=== PATIENT | female | born 1980 | race Caucasian/White ===

== ENCOUNTER → 2016-09-16 | Outpatient (CLI) | payer OTHER ==
[~2016-09-16] MED LIST: ASPI81TA28 PO; BUSP15TA70 PO; CALC625T13 PO; CETI10TA84 PO; ESCI1TAB10 PO; FOLI1TAB7 PO; OMEP20TA14 PO; VNTHFA/IN INH
[2016-09-19 00:16] LABS: CRYPTOSPORIDIUM AG TC 37213 NOT DETECTED (NOT DETECTED); O&P GIARDIA AG NOT DETECTED (NOT DETECTED)
== END | disposition home or self-care (01) ==
LOC: C.LABMFLN 15:00
PROVIDERS: ATTEND Family Medicine
DX: R19.7 Diarrhea, unspecified (principal)

== ENCOUNTER → 2016-09-28 | Outpatient (CLI) | payer OTHER ==
[2016-09-28 18:06] LABS: HEMATOCRIT 40.4 % (37-47); MEAN CELL VOLUME 84.5 fL (80-100); MEAN CORPUSCULAR HEMOGLOBIN 27.4 pg (25-34); MEAN CORPUSCULAR HGB CONC 32.4 g/dl (32-36); MEAN PLATELET VOLUME 9.7 fL (7.4-10.4); PLATELET COUNT 415 K/uL (130-400); RED BLOOD COUNT 4.78 M/uL (4.2-5.4); WHITE BLOOD COUNT 8.95 K/uL (4.8-10.8)
[2016-09-28 18:17] LABS: ALT/SGPT 20 U/L (12-78); BLOOD UREA NITROGEN 10 mg/dl (7-18); BUN/CREATININE RATIO 14.5 (10-20); CALCIUM 8.7 mg/dl (8.5-10.1); CARBON DIOXIDE 28 mmol/L (21-32); CHLORIDE 103 mmol/L (98-107); CREATININE 0.69 mg/dl (0.60-1.20); GLUCOSE 78 mg/dl (70-99); POTASSIUM 3.7 mmol/L (3.5-5.1); SODIUM 139 mmol/L (136-145)
[2016-09-28 18:28] LABS: ALB/GLOB RATIO 0.8 (0.9-2); ALKALINE PHOSPHATASE 91 U/L (45-117); AST/SGOT 15 U/L (15-37)
== END | disposition home or self-care (01) ==
LOC: C.LABMFLN 11:16
PROVIDERS: ATTEND Internal Medicine Gastroenterology
DX: R19.7 Diarrhea, unspecified (principal)

== ENCOUNTER → 2016-10-16 | Day surgery (SDC) | payer OTHER ==
[2016-09-28 11:04] VITALS: Ht 175.3 cm; Wt 136.8 kg
[~2016-10-16] VITALS: Ht 175.3 cm; Wt 136.8 kg
[~2016-10-16] MED LIST changes: +LIDOCAINE HCL 2% 2 ML VIAL (20MG/ML) ONE; +MIDAZOLAM HCL 1 MG/ML 2ML VIAL ONE; +PROPOFOL IV EMULSION 10 MG/ML 20 ML VIAL IV ONE
--- NOTE | 2016-10-16 13:10 | Endo History and Physical ---
History & Physical Date of Service: Oct 16, 2016. Chief Complaint: diarrrhea Referring Physician: Roya MCNEILL History of Present Illness For colonoscopy Past Surgical History Hx Cardiac Surgery: No Hx Internal Defibrillator: No Hx Pacemaker: No Hx Abdominal Surgery: Yes (D&E) Hx of Implantable Prosthesis: No Hx Post-Op Nausea and Vomiting: No Hx Cancer Surgery: No Hx Thoracic Surgery: No Hx Orthopedic: No Hx Urinary Tract Surgery: No Family History Colon CA, Polyp Social History Smoking Status: Never Smoker Hx Substance Use: No Hx Alcohol Use: No Allergies Coded Allergies: Cefaclor (Verified Allergy, Unknown, hives, 10/16/16) Clarithromycin (Verified Allergy, Unknown, hives, 10/16/16) Erythromycin (Verified Allergy, Unknown, hives, 10/16/16) Penicillins (Verified Allergy, Unknown, hives, 10/16/16) Sulfamethoxazole w/Trimethoprim (Verified Allergy, Unknown, hives, 10/16/16 ) Current Medications Reported Home Medications Medications Dose Route/Sig Max Daily Dose Days Date Category Fiber Tabs (Calcium Polycarbophil) 625 Mg Tab 1 Tab PO QAM 09/28/16 Reported Ventolin Hfa (Albuterol) 200 Puffs/26690 Mcg Aers 2-4 Puffs INH Q6H PRN 08/10/16 Reported Buspar (Buspirone Hcl) 15 Mg Tab 7.5 Mg PO BID 08/10/16 Reported Lexapro (Escitalopram Oxalate) 20 Mg Tab 20 Mg PO QAM 07/17/16 Reported Zyrtec (Cetirizine HCl) 10 Mg Tab 10 Mg PO QAM 07/17/16 Reported Prilosec Otc (Omeprazole Magnesium) 20 Mg Tab 20 Mg PO QAM 07/17/16 Reported Folvite (Folic Acid) Unknown Strength Tab 800 Mcg PO QAM 07/17/16 Reported Aspirin Ec (Aspirin) 81 Mg Tab 81 Mg PO QAM 07/17/16 Reported Vital Signs Weight (Kilograms): 136.82 Height (Feet): 5 Height (Inches): 9 Date Time Temp Pulse Resp B/P Pulse Ox O2 Delivery O2 Flow Rate FiO2 10/16/16 12:27 36.6 93 20 150/85 95 Room Air Physical Exam General Appearance: + obese Respiratory/Chest: Respiratory effort: no dyspnea Cardiovascular: Heart Auscultation: RRR Abdomen: Inspection & Palpation: soft Assessment and Plan Diarrhea for colonoscopy
--- NOTE | 2016-10-16 13:48 | Endo History and Physical ---
History & Physical Date of Service: Oct 16, 2016. Chief Complaint: diarrrhea Referring Physician: Roya MCNEILL History of Present Illness For colonoscopy Past Surgical History Hx Cardiac Surgery: No Hx Internal Defibrillator: No Hx Pacemaker: No Hx Abdominal Surgery: Yes (D&E) Hx of Implantable Prosthesis: No Hx Post-Op Nausea and Vomiting: No Hx Cancer Surgery: No Hx Thoracic Surgery: No Hx Orthopedic: No Hx Urinary Tract Surgery: No Family History Colon CA, Polyp Social History Smoking Status: Never Smoker Hx Substance Use: No Hx Alcohol Use: No Allergies Coded Allergies: Cefaclor (Verified Allergy, Unknown, hives, 10/16/16) Clarithromycin (Verified Allergy, Unknown, hives, 10/16/16) Erythromycin (Verified Allergy, Unknown, hives, 10/16/16) Penicillins (Verified Allergy, Unknown, hives, 10/16/16) Sulfamethoxazole w/Trimethoprim (Verified Allergy, Unknown, hives, 10/16/16 ) Current Medications Reported Home Medications Medications Dose Route/Sig Max Daily Dose Days Date Category Fiber Tabs (Calcium Polycarbophil) 625 Mg Tab 1 Tab PO QAM 09/28/16 Reported Ventolin Hfa (Albuterol) 200 Puffs/03892 Mcg Aers 2-4 Puffs INH Q6H PRN 08/10/16 Reported Buspar (Buspirone Hcl) 15 Mg Tab 7.5 Mg PO BID 08/10/16 Reported Lexapro (Escitalopram Oxalate) 20 Mg Tab 20 Mg PO QAM 07/17/16 Reported Zyrtec (Cetirizine HCl) 10 Mg Tab 10 Mg PO QAM 07/17/16 Reported Prilosec Otc (Omeprazole Magnesium) 20 Mg Tab 20 Mg PO QAM 07/17/16 Reported Folvite (Folic Acid) Unknown Strength Tab 800 Mcg PO QAM 07/17/16 Reported Aspirin Ec (Aspirin) 81 Mg Tab 81 Mg PO QAM 07/17/16 Reported Vital Signs Weight (Kilograms): 136.82 Height (Feet): 5 Height (Inches): 9 Date Time Temp Pulse Resp B/P Pulse Ox O2 Delivery O2 Flow Rate FiO2 10/16/16 12:27 36.6 93 20 150/85 95 Room Air Physical Exam Respiratory/Chest: Respiratory effort: no dyspnea
--- NOTE | 2016-10-16 13:49 | Discharge Instructions ---
Endoscopy Patient Instructions Date / Procedure(s) Performed Oct 16, 2016. Colonoscopy Allergy Information Coded Allergies: Cefaclor (Verified Allergy, Unknown, hives, 10/16/16) Clarithromycin (Verified Allergy, Unknown, hives, 10/16/16) Erythromycin (Verified Allergy, Unknown, hives, 10/16/16) Penicillins (Verified Allergy, Unknown, hives, 10/16/16) Sulfamethoxazole w/Trimethoprim (Verified Allergy, Unknown, hives, 10/16/16 ) Discharge Date / Findings Oct 16, 2016. Normal colon Medication Instructions Restart Stopped Medication(s): resume meds Reported Home Medications Medications Dose Route/Sig Max Daily Dose Days Date Category Fiber Tabs (Calcium Polycarbophil) 625 Mg Tab 1 Tab PO QAM 09/28/16 Reported Ventolin Hfa (Albuterol) 200 Puffs/31482 Mcg Aers 2-4 Puffs INH Q6H PRN 08/10/16 Reported Buspar (Buspirone Hcl) 15 Mg Tab 7.5 Mg PO BID 08/10/16 Reported Lexapro (Escitalopram Oxalate) 20 Mg Tab 20 Mg PO QAM 07/17/16 Reported Zyrtec (Cetirizine HCl) 10 Mg Tab 10 Mg PO QAM 07/17/16 Reported Prilosec Otc (Omeprazole Magnesium) 20 Mg Tab 20 Mg PO QAM 07/17/16 Reported Folvite (Folic Acid) Unknown Strength Tab 800 Mcg PO QAM 07/17/16 Reported Aspirin Ec (Aspirin) 81 Mg Tab 81 Mg PO QAM 07/17/16 Reported Provider Instructions Activity Restrictions - No exercising or heavy lifting for 24 hours. - Do not drink alcohol the day of the procedure. - Do not drive a car or operate machinery until the day after the procedure. - Do not make any important decisions or sign important papers in 24 hours after the procedure. Following Day: - Return to full activity which may include returning to work/school. Diet Start your diet with liquids and light foods (jello, soup, juice, toast). Then eat your usual diet if not nauseated. Treatment For Common After Affects For mild abdominal pain, bloating, or excessive gas: - Rest - Eat lightly - Lie on right side Follow-Up Information Follow-up with Roya MCNEILL as scheduled Anesthesia Information What You Should Know You have had a procedure that required some medicine to reduce anxiety and discomfort. This treatment is called moderate sedation. After receiving the treatment, you may be sleepy, but you will be able to breathe on your own. The effects of the treatment may last for several hours. Follow these instructions along with Activity/Diet recommendations noted above: * Do NOT do anything where dizziness or clumsiness would be dangerous. * Rest quietly at home today, then you can be up and about tomorrow. * Have a responsible person stay with you the rest of today. * You may have had an I.V. today. If so, you may take the dressing off later today. Recommendations Call your doctor if: * Trouble breathing * Continuous vomiting for more than 24 hours * Temperature above 101 degrees * Severe abdominal pain or bloating * Pain not relieved by pain medicine ordered * There is increased drainage or redness from any incision * A large amount of rectal bleeding greater than 2-3 tablespoons. (If you had a polyp/s removed or have hemorrhoids, a small amount of blood - from the rectum is to be expected.) * You have any unanswered questions or concerns. IN THE EVENT OF A SERIOUS EMERGENCY, GO TO THE NEAREST EMERGENCY ROOM Your discharge instructions were prepared by provider Connor Harris. Patient Instructions Signature Page Teresita Connor Patient (or Guardian) Signature/Date: I have read and understand the instructions given to me by my caregivers. Caregiver/RN/Doctor Signature/Date: The above-named patient and/or guardian has received patient instructions on this date. + Original Patient Signature Page (only) stays with chart. Please make copy for patient.
--- NOTE | 2016-10-16 13:54 | GI REPORT ---
Procedure Date: 10/16/2016 1:16 PM Procedure: Colonoscopy Indications: Clinically significant diarrhea of unexplained origin Medicines: Midazolam 2 mg IV, Propofol total dose 300 mg IV, Lidocaine 40 mg IV Complications: No immediate complications. Estimated Blood Loss: Estimated blood loss: none. Procedure: Pre-Anesthesia Assessment: - Prior to the procedure, a History and Physical was performed, and patient medications, allergies and sensitivities were reviewed. The patient's tolerance of previous anesthesia was reviewed. - The risks and benefits of the procedure and the sedation options and risks were discussed with the patient. All questions were answered and informed consent was obtained. After I obtained informed consent, the scope was passed under direct vision. Throughout the procedure, the patient's blood pressure, pulse, and oxygen saturations were monitored continuously. The scope was introduced through the anus and advanced to the cecum, identified by appendiceal orifice and ileocecal valve. The colonoscopy was performed without difficulty. The patient tolerated the procedure well. The quality of the bowel preparation was good. Findings: The entire examined colon appeared normal. Impression: - The entire examined colon is normal. - No specimens collected. Recommendation: - Discharge patient to home (ambulatory). - Continue present medications. - Return to primary care physician PRN. Connor Harris M.D. Connor Harris MD 10/16/2016 1:54:40 PM This report has been signed electronically. Note Initiated On: 10/16/2016 1:16 PM I attest to the content of the Intraoperative Record and orders documented therein, exceptions below
--- NOTE | 2016-10-16 14:13 | Anesthesiology Progress Note ---
Anesthesia Post Op Note Date & Time Oct 16, 2016 at 14:14 Vital Signs Pain Intensity: 0 Vital Signs Past 12 Hours Date Time Temp Pulse Resp B/P Pulse Ox O2 Delivery O2 Flow Rate FiO2 10/16/16 14:06 79 20 118/76 99 Room Air 10/16/16 13:51 66 20 119/61 99 Room Air 10/16/16 12:27 36.6 93 20 150/85 95 Room Air Notes Mental Status: alert / awake / arousable, participated in evaluation Pt Amnestic to Procedure: Yes Nausea / Vomiting: adequately controlled Pain: adequately controlled Airway Patency, RR, SpO2: stable & adequate BP & HR: stable & adequate Hydration State: stable & adequate Anesthetic Complications: no major complications apparent
[2016-10-16 14:26] VITALS: BP 129/76; PULSE 79; O2SAT 99
== END | disposition home or self-care (01) ==
LOC: C.GI 12:03
PROVIDERS: ATTEND Internal Medicine Gastroenterology
DX: R19.7 Diarrhea, unspecified (principal); Z80.0 Family history of malignant neoplasm of digestive organs; Z83.71 Family history of colonic polyps

== ENCOUNTER → 2016-10-19 | Outpatient (CLI) | payer OTHER ==
[~2016-10-19] MED LIST changes: -LIDOCAINE HCL 2% 2 ML VIAL (20MG/ML) ONE; -MIDAZOLAM HCL 1 MG/ML 2ML VIAL ONE; -PROPOFOL IV EMULSION 10 MG/ML 20 ML VIAL IV ONE
--- NOTE | 2016-10-19 13:27 | DIAGNOSTIC IMAGING REPORT ---
CHEST 2 VIEWS ROUTINE CLINICAL HISTORY: R68.89 Flu-like [id number] COMPARISON STUDY: 07/17/2016 FINDINGS: The cardiac and mediastinal contours are normal. There is no evidence of focal pulmonary consolidation. There is no evidence of failure. No pleural effusions are visualized.[ IMPRESSION: No active disease in the chest. Electronically signed by: Roshan Liu M.D. 10/19/2016 1:26 PM Dictated Date/Time: 10/19/2016 1:26 PM
== END | disposition home or self-care (01) ==
LOC: C.RAD 13:02
PROVIDERS: ATTEND Family Medicine
DX: R68.89 Other general symptoms and signs (principal)

== ENCOUNTER → 2016-10-19 | Outpatient (CLI) | payer OTHER ==
[2016-10-19 14:56] LABS: INFLUENZA A PCR Neg for Influ A (NEG); INFLUENZA B PCR Neg for Influ B (NEG)
== END | disposition home or self-care (01) ==
LOC: C.LABMFLN 10:18
PROVIDERS: ATTEND Family Medicine
DX: R50.9 Fever, unspecified (principal)

== ENCOUNTER → 2017-03-04 | Outpatient (CLI) | payer OTHER ==
--- NOTE | 2017-03-04 15:58 | DIAGNOSTIC IMAGING REPORT ---
LEFT KNEE 3 VIEWS HISTORY:36 [id number] Left knee painM25.469 Effusion of [id number] . Chronic left knee pain without trauma. COMPARISON: None available. TECHNIQUE: Frontal, lateral and sunrise views of the left knee. FINDINGS: There is no acute fracture or dislocation. Moderate tricompartmental osteoarthritis is noted, most pronounced in the medial and patellofemoral compartments. Apparent 2 mm intra-articular loose body is present within the lateral patellofemoral joint. There is a small joint effusion. Negative for radiopaque foreign body. IMPRESSION: 1. No acute fracture or dislocation. 2. Moderate tricompartmental osteoarthritis, most pronounced within the medial and patellofemoral compartments. 2 mm loose body is present within the lateral patellofemoral joint. 3. Small joint effusion. The above report was generated using voice recognition software. It may contain grammatical, syntax or spelling errors. Electronically signed by: Tico Lynn 03/04/2017 3:57 PM Dictated Date/Time: 03/04/2017 3:55 PM
== END | disposition home or self-care (01) ==
LOC: C.RAD 15:25
PROVIDERS: ATTEND Physician Assistant
DX: M25.462 Effusion, left knee (principal); M25.562 Pain in left knee; M17.9 Osteoarthritis of knee, unspecified

== ENCOUNTER → 2017-08-16 | Outpatient (CLI) | payer OTHER ==
[~2017-08-16] MED LIST changes: -FOLI1TAB7 PO; +FOLI1TAB8 PO
--- NOTE | 2017-08-16 12:30 | DIAGNOSTIC IMAGING REPORT ---
CHEST 2 VIEWS ROUTINE HISTORY: 37 years-old Female R05 Cough with fever acute cough and congestion for 3 days. COMPARISON: Chest radiograph 10/19/2016 TECHNIQUE: PA and lateral views of the chest FINDINGS: Cardiomediastinal and hilar silhouettes are within normal limits. There is no pneumothorax, pleural effusion, focal airspace consolidation or overt pulmonary edema. Bones of the chest are grossly intact. IMPRESSION: No acute cardiopulmonary process. The above report was generated using voice recognition software. It may contain grammatical, syntax or spelling errors. Electronically signed by: Tico Lynn M.D. 08/16/2017 12:29 PM Dictated Date/Time: 08/16/2017 12:28 PM
== END | disposition home or self-care (01) ==
LOC: C.RAD 12:09
PROVIDERS: ATTEND Physician Assistant
DX: R05 Cough (principal); R50.9 Fever, unspecified

== ENCOUNTER → 2017-09-14 | Outpatient (CLI) | payer OTHER | END | disposition home or self-care (01) | LOC: C.LABMFLN 10:14 | PROVIDERS: ATTEND Physician Assistant | DX: R05 Cough (principal) ==

== ENCOUNTER → 2017-11-24 | Outpatient (CLI) | payer OTHER | END | disposition home or self-care (01) | LOC: C.LABMFLN 14:02 | PROVIDERS: ATTEND Physician Assistant | DX: J02.9 Acute pharyngitis, unspecified (principal) ==

== ENCOUNTER → 2018-04-20 | Outpatient (CLI) | payer OTHER | END | disposition home or self-care (01) | LOC: C.LABMFLN 07:09 | PROVIDERS: ATTEND Physician Assistant | DX: Z00.00 Encounter for general adult medical examination without abnormal findings (principal) ==

== ENCOUNTER 2024-05-08 17:41 | Inpatient (IN) ==
[2024-05-08 18:23] LABS: Basophils # (auto) 0.07 K/uL (0.00-0.20); Basophils % (auto) 0.6 %; Eosinophils # (auto) 0.11 K/uL (0.00-0.50); Eosinophils % (auto) 0.9 %; Hematocrit (blood only) 43.4 % (37.0-47.0); Immature Granulocytes # (auto) 0.04 K/uL (0.01-0.20); Immature Granulocytes % (auto) 0.3 %; Lymphocytes # (auto) 2.65 K/uL (1.20-3.40); Lymphocytes % (auto) 21.3 %; Mean Corpuscular Hemoglobin 28.5 pg (25.0-34.0); Mean Corpuscular Hgb Conc 32.3 g/dL (32.0-36.0); Mean Corpuscular Volume 88.4 fL (80.0-100.0); Mean Platelet Volume 9.5 fL (9.4-12.4); Monocytes # (auto) 0.75 K/uL (0.11-0.59); Neutrophils # (auto) 8.84 K/uL (1.40-6.50); Neutrophils % (auto) 70.9 %; Platelet Count 346 K/uL (130-400); RDW Coefficient of Variation 12.6 % (11.5-14.5); RDW Standard Deviation 40.9 fL (36.4-46.3); Red Blood Count 4.91 M/uL (4.20-5.40); White Blood Count 12.46 K/ul (4.8-10.8)
--- NOTE | 2024-05-08 18:25 | Emergency Department Note ---
Impression & Plan Bilateral pulmonary embolism, Closed dislocation of patella ED Provider Note NAME: ROEL VELEZ AGE: 43 SEX: F : 1980 ARRIVES VIA: Walk-In INFORMANT: Patient, ED PROVIDER(S): Adama Dillon MD CHIEF COMPLAINT: Chest pain MEDICAL DECISION MAKING: Patient presents due to concern for chest pain. IV was established and blood work was obtained along with an EKG troponin and chest x-ray. Patient's EKG did show Q waves and T wave version inferiorly. CT angiography of the chest was ordered. Prior to going to CAT scan the patient had acute onset of right knee pain does have a prior history of a patellar dislocation. X-ray was obtained which did show a patellar dislocation. The patient did receive IV morphine 8 mg. Patient subsequently had improvement in her pain. The patient was able to be reduced with the patient still had a lot of mobility of the patella. I did apply some Kinesiotape as well as a knee immobilizer to help secure the patella. Blood work showed white count of 12 with normal H&H and platelet count kidney function was unremarkable. Troponin not elevated COVID flu and RSV negative. The patient's D-dimer was 4200. Patient did get a CTA of the chest. Reviewed the CT did show concern for bilateral PEs. Heparin was ordered. Patient did have her knee x-ray completed which shows improved alignment but may be still subluxed. Given the patient's bilateral PEs I did speak the on-call hospitalist service after informing the patient the patient's of the findings and the patient was admitted by Dr. Solis. Critical Care: I have personally spent 50 minutes of critical care time in direct management of this patient. This includes bedside care, interpretation of diagnostic studies, and testing, discussion with consultants, patient, and family members, and other require inpatient management activities. This 50 minutes is in excess of all separately billable procedures. Procedures: Right patellar dislocation reduction performed by Dr. Dillon Indication: Right patellar dislocation Verbal consent obtained. Risks and benefits were explained with the usual customary discussion. A time out was taken. Neurovascular examination before the procedure revealed. The right knee was extended and this was applied medially to the patella which did result in improved alignment of the patella. The patient still did have associated laxity of the patella. Knee immobilizer was applied. Neurovascular examination after the procedure revealed normal. The patient had significant pain relief and tolerated the procedure well. Discussion w/ other healthcare providers: Dr. Solis inpatient medicine service Prior /Outside records reviewed: None Differential diagnosis: Cardiac ischemia, aortic dissection, pulmonary embolism, pneumothorax, pneumonia, pericarditis, myocarditis, GERD, cholecystitis, pancreatitis, musculoskeletal, as well as other pathologies were considered. Diagnostics, as interpreted by me: ECG:Normal sinus rhythm, rate of 92, normal intervals, normal axis no ST elevations, T wave inversion in lead III. T wave version may be more pronounced Cardiac monitoring: An order was placed for continuous cardiac monitoring. The monitor shows a rate of 87 with sinus rhythm. Patient was placed on pulse oximetry Medical decision rules: None Imaging studies: I informally interpreted the patient's CT angiography of the chest shows concern for bilateral PEs with formal report to follow. I informally interpreted the patient's knee x-ray which does show lateral subluxation of the right patella with formal report to follow. HPI: Patient presents due to concern for chest pain. The patient states that it began last night and is right sided worse with breathing. Patient states she currently has a chest pain at present. Nonradiating. Patient denies any falls or trauma no cough or fever. Patient did travel at the end of February early March. Patient did suffer a fall and a patellar dislocation in February and has been wearing a knee brace on her right leg. She does believe that she has noticed some right leg swelling. Patient denies any calf pain. No shortness of breath. Patient has any prior history of DVT or PE. Patient did not take anything for it at home. Patient reports that she is undergoing physical therapy for a prior patellar dislocation and is scheduled for surgery with Dr. Arellano for possible osteotomy if this does not improve in May. PAST MEDICAL HISTORY: See Below PAST SURGICAL HISTORY: See Below SOCIAL HISTORY: See Below HOME MEDICATIONS: See Below ALLERGIES: See Below VITALS: See Below PHYSICAL EXAMINATION: GENERAL: NAD, non-toxic. Wearing glasses. EYE EXAM: Normal conjunctiva. PERRL, no anisocoria and EOM's grossly intact w/o pain. OROPHARYNX: Moist mucus membranes, grossly normal dentition. NECK: Trachea midline, no stridor. LUNGS: Clear to auscultation. Normal chest wall mechanics. HEART: NSR, no MRG. ABDOMEN: Abdomen soft, non-tender, no masses, no rebound or guarding. BACK: No CVA TTP. SKIN: No rashes and no bruising. UPPER EXTREMITIES: Upper extremities are grossly normal. LOWER EXTREMITIES: Grossly normal, no edema. No obvious asymmetry, negative Homans' sign bilaterally, normal sensation. NEURO EXAM: A&O x3, cranial nerves II-XII grossly intact, normal speech, moves all 4 extremities. Past Med/Surg History Problem List (Updated 05/08/24 @ 23:53 by Adama Dillon MD) Closed dislocation of patella (Acute) Bilateral pulmonary embolism (Acute) Dislocation of right patella Change in bowel habits Positive RACHEL (antinuclear antibody) Thyroid nodule Cervicalgia Thyromegaly History of hyperlipidemia Abnormal mammogram Allergic rhinitis (Acute) Bleeding disorder (Acute) Migraine headache (Acute) HLD (hyperlipidemia) Allergic rhinitis Chronic GERD MTHFR gene mutation Asthma well controlled -- last used rescue inhaler Fall 2022. Benign essential hypertension Anxiety Medical History History of COVID-19 05/2021: severe flu symptoms. no hospitalization. Obesity Surgical History History of esophagogastroduodenoscopy (EGD) History of dilatation and curettage D&E History of colonoscopy History of myringotomy BMT (multiple times) Family History Father Anxiety Depression Lung disease Hypertension Mother Hypertension Grandfather Lung disease Cancer Other No family history of adverse response to anesthesia Denies family history of Ovarian cancer Prostate cancer Myocardial infarction Breast cancer Colorectal cancer Social History Smoking Status: Current every day smoker Tobacco Type: E-cigarettes / Vaping Cigarettes Per Day: vapes daily; Second Hand Exposure: No; Do You Dip or Chew Tobacco: No; Hx Alcohol Use: Yes (little) Hx Substance Use: No Preferred Language: Hebrew Communication Ability: Effective Visual Impairment: No Limitations Hearing Ability: Normal 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 Beliefs That Will Affect Care: None marital status: Single Current Living Situation: Family current occupational status: employed How many Children do You have: 3 Feels Safe at Home: Yes Childhood Exposure to Second-Hand Smoke: Yes Diet: regular caffeine: Yes during the past year weight has: remained stable Dental Care, Regularly: Yes Physical Activity Frequency: 1-2 Times per Week Seatbelt Use: always Sunscreen Use: Yes (sometimes) Assistive Devices: Contacts and Glasses Allergies Allergies Allergy/AdvReac Type Severity Reaction Status Date / Time Bactrim Allergy Unknown hives Verified 10/16/16 12:17 cefaclor Allergy Unknown hives Verified 11/16/23 13:04 clarithromycin Allergy Unknown hives Verified 11/16/23 13:04 erythromycin base Allergy Unknown hives Verified 11/16/23 13:04 Penicillins Allergy Unknown hives Verified 11/16/23 13:04 sulfamethoxazole Allergy Unknown hives Verified 11/16/23 13:04 trimethoprim Allergy Unknown hives Verified 11/16/23 13:04 Home Meds Home Medications Medication Instructions Recorded Confirmed aspirin 81 mg tablet,delayed 81 mg PO QAM 09/11/21 11/16/23 release (Candace Low Dose Aspirin) fluticasone propionate 50 2 sprays intranasal DAILY PRN 09/11/21 11/16/23 mcg/actuation nasal Allergy Symptoms spray,suspension multivitamin (Multiple Vitamins 1 tab PO QAM 09/11/21 11/16/23 tablet) magnesium 30 mg tablet 30 mg PO 3XWK 09/17/21 11/16/23 levonorgestrel 21 mcg/24 hr (up to 1 ea intrauterine ONCE 11/03/23 11/16/23 8 years) 52 mg intrauterine device (Mirena) omega 6-szk-naq-fish oil 1,000 mg 2 cap PO QAM 11/03/23 11/16/23 (120 mg-180 mg) capsule (Fish Oil) omeprazole magnesium 20 mg 20 mg PO QAM 11/03/23 11/16/23 tablet,delayed release Previous Rx's Medication Instructions Recorded eletriptan 20 mg tablet 20 mg PO ONCE PRN migraine 04/23/22 headache #8 tabs albuterol sulfate 90 mcg/actuation See Rx Instructions .Route 10/15/22 aerosol inhaler .COMPLEX #18 ea albuterol sulfate 2.5 mg/3 mL 2.5 mg (3 mL) inhalation Q4H PRN 10/23/22 (0.083 %) solution for nebulization shortness of breath or wheezing #180 mL nebulizer accessories #1 ea 10/23/22 hydroxyzine HCl 25 mg tablet 25 mg PO QID PRN anxiety #30 tabs 06/15/23 losartan 25 mg tablet 25 mg PO BID #180 tabs 07/19/23 montelukast 10 mg tablet 10 mg PO QPM #90 tabs 09/27/23 buspirone 10 mg tablet 10 mg PO BID #180 tabs 01/10/24 fluoxetine 40 mg capsule 40 mg PO QAM #90 caps 01/13/24 Results & Data (ED) Vital Signs Vital Signs - 24 hr 05/08/24 17:45 05/08/24 18:14 05/08/24 18:14 Temperature 36.5 C Temperature Source Temporal Artery Scan Pulse Rate 102 H Pulse Rate [Apical] 90 Pulse Rate from SpO2 Sensor Pulse Rhythm Regular Pulse Strength Normal Respiratory Rate 20 22 Respiratory Effort / Characteristics Non-Labored Spontaneous Non-Labored Respiratory Depth Normal Normal Respiratory Pattern Regular Blood Pressure 168/84 H Blood Pressure [Right Arm] 129/99 Blood Pressure Mean 112 Blood Pressure Mean [Right Arm] 109 Blood Pressure Position Sitting Pulse Oximetry 94 98 97 Oxygen Delivery Method Room Air Room Air Room Air Sepsis Recent Fever Within 48 Hours No Sepsis New/Unexplained Change in Mental Status No Sepsis Action Taken by Nursing No Action Required 05/08/24 18:14 05/08/24 18:14 05/08/24 18:39 Temperature Temperature Source Pulse Rate 98 H 83 Pulse Rate [Apical] Pulse Rate from SpO2 Sensor 83 Pulse Rhythm Pulse Strength Respiratory Rate 32 H Respiratory Effort / Characteristics Respiratory Depth Respiratory Pattern Blood Pressure Blood Pressure [Right Arm] Blood Pressure Mean Blood Pressure Mean [Right Arm] Blood Pressure Position Pulse Oximetry 97 97 Oxygen Delivery Method Room Air Sepsis Recent Fever Within 48 Hours Sepsis New/Unexplained Change in Mental Status Sepsis Action Taken by Nursing 05/08/24 19:00 05/08/24 19:45 05/08/24 20:00 Temperature Temperature Source Pulse Rate 80 Pulse Rate [Apical] Pulse Rate from SpO2 Sensor 81 111 H 107 H Pulse Rhythm Pulse Strength Respiratory Rate 23 Respiratory Effort / Characteristics Respiratory Depth Respiratory Pattern Blood Pressure Blood Pressure [Right Arm] Blood Pressure Mean Blood Pressure Mean [Right Arm] Blood Pressure Position Pulse Oximetry 96 94 97 Oxygen Delivery Method Sepsis Recent Fever Within 48 Hours Sepsis New/Unexplained Change in Mental Status Sepsis Action Taken by Nursing 05/08/24 21:24 05/08/24 21:36 05/08/24 22:00 Temperature Temperature Source Pulse Rate 85 89 87 Pulse Rate [Apical] Pulse Rate from SpO2 Sensor 88 89 Pulse Rhythm Pulse Strength Respiratory Rate 22 17 21 Respiratory Effort / Characteristics Respiratory Depth Respiratory Pattern Blood Pressure 118/70 Blood Pressure [Right Arm] Blood Pressure Mean 86 Blood Pressure Mean [Right Arm] Blood Pressure Position Pulse Oximetry 95 95 Oxygen Delivery Method Room Air Sepsis Recent Fever Within 48 Hours Sepsis New/Unexplained Change in Mental Status Sepsis Action Taken by Nursing 05/08/24 22:01 05/08/24 22:36 Temperature Temperature Source Pulse Rate 79 Pulse Rate [Apical] Pulse Rate from SpO2 Sensor 81 Pulse Rhythm Pulse Strength Respiratory Rate 19 Respiratory Effort / Characteristics Respiratory Depth Respiratory Pattern Blood Pressure 114/77 Blood Pressure [Right Arm] Blood Pressure Mean 92 Blood Pressure Mean [Right Arm] Blood Pressure Position Pulse Oximetry 94 Oxygen Delivery Method Room Air Sepsis Recent Fever Within 48 Hours Sepsis New/Unexplained Change in Mental Status Sepsis Action Taken by [facility] Medications Current Medication List: was personally reviewed by me Laboratory Data Attestation: I reviewed the patient's lab results. 05/08/24 17:57 05/08/24 17:57 Lab Results 05/08/24 05/08/24 Range/Units 17:57 18:10 WBC 12.46 H (4.8-10.8) K/ul RBC 4.91 (4.20-5.40) M/uL Hgb 14.0 (12.0-16.0) g/dl Hct 43.4 (37.0-47.0) % MCV 88.4 (80.0-100.0) fL MCH 28.5 (25.0-34.0) pg MCHC 32.3 (32.0-36.0) g/dL RDW Std Deviation 40.9 (36.4-46.3) fL RDW Coeff of Fiorella 12.6 (11.5-14.5) % Plt Count 346 (130-400) K/uL MPV 9.5 (9.4-12.4) fL Immature Gran % (Auto) 0.3 % Neut % (Auto) 70.9 % Lymph % (Auto) 21.3 % [place] % (Auto) 6.0 % Eos % (Auto) 0.9 % Baso % (Auto) 0.6 % Neut # (Auto) 8.84 H (1.40-6.50) K/uL Lymph # (Auto) 2.65 (1.20-3.40) K/uL [place] # (Auto) 0.75 H (0.11-0.59) K/uL Eos # (Auto) 0.11 (0.00-0.50) K/uL Baso # (Auto) 0.07 (0.00-0.20) K/uL Immature Gran # (Auto) 0.04 (0.01-0.20) K/uL PT 10.5 (9.0-12.0) Seconds INR 1.0 (0.9-1.1) APTT 27 (21-31) Seconds PTT Ratio 1.0 D-Dimer 4230 H* (0-500) ug/L FEU Sodium 138 (136-145) mmol/L Potassium 3.6 (3.5-5.1) mmol/L Chloride 101 (98-107) mmol/L Carbon Dioxide 27 (21-32) mmol/L Anion Gap 10 (3-11) BUN 10 (6-23) mg/dl Creatinine 0.58 L (0.6-1.2) mg/dl Est Cr Clr Drug Dosing 177.3 ml/min Est GFR ( Amer) 130.8 ml/min Est GFR (Non-Af Amer) 112.9 ml/min BUN/Creatinine Ratio 17.2 (10-20) Glucose 102 H (70-99(Fasting)) mg/dl Calcium 9.4 (8.6-10.3) mg/dl Total Bilirubin 0.4 (0.2-1.0) mg/dl AST 18 (13-39) U/L ALT 18 (7-52) U/L Alkaline Phosphatase 97 (34-104) U/L Troponin I High Sens < 2.3 (0-14) pg/ml Total Protein 7.9 (6.0-8.3) gm/dl Albumin 4.3 (3.4-5.0) gm/dl Globulin 3.6 (2.5-4.0) gm/dl Albumin/Globulin Ratio 1.2 (0.9-2) SARS-CoV-2 (PCR) NEGATIVE (Negative) Influenza Type A (PCR) Negative (Neg) Influenza Type B (PCR) Negative (Neg) RSV (RT-PCR) Negative (Neg) Administered Medications Heparin Sodium/Dextrose (Heparin Sodium/Dextrose) 25,000 units in 500 mls @ 32 mls/hr IV .[id number] SHIRLEY; Protocol Stop: 06/07/24 21:59 Last Admin: 05/08/24 22:35 Dose: 1,600 units/hr, 32 mls/hr Documented By: BRAULIO Co-signed By: TONY Discontinued Medications Heparin Sodium (Porcine) (Heparin Sod (Porcine) 1000 Unit/Ml) 1 units IV NOW ONE Stop: 05/08/24 21:55 Last Admin: 05/08/24 22:35 Dose: 7,000 units Documented By: BRAULIO Co-signed By: TONY Heparin Sodium/Dextrose (Heparin Iv Adult Wt-Based Standard W/ Initial Bolus Protocol) 1 each IV NOW STA; Protocol Stop: 05/08/24 21:40 Last Admin: 05/08/24 21:53 Dose: 1 each Documented By: BRAULIO Sodium Chloride (Nss) 1,000 mls @ 999 mls/hr IV .Q1H1M ONE Stop: 05/08/24 19:37 Last Infusion: 05/08/24 20:19 Dose: Infused Documented By: Admin: 05/08/24 18:53 Dose: 999 mls/hr Documented By: BRAULIO Ioversol (Optiray 320 125ml) 120 ml IV ONCE ONE Stop: 05/08/24 20:35 Last Admin: 05/08/24 20:34 Dose: 120 ml Documented By: MIGUEL Ketorolac Tromethamine (Ketorolac Tromethamine 15 Mg/Ml Vial) 10 mg IV NOW ONE Stop: 05/08/24 18:37 Last Admin: 05/08/24 18:52 Dose: 10 mg Documented By: BRAULIO Morphine Sulfate (Morphine Sulfate 10 Mg/Ml Carp/Vial) 8 mg IV NOW STA Stop: 05/08/24 19:12 Last Admin: 05/08/24 19:17 Dose: 8 mg Documented By: BRAULIO Imaging Data Radiologist's Impression: Chest X-Ray 05/08/24 17:48 XR chest 1V portable CLINICAL HISTORY: Chest pain, nonspecific TECHNIQUE: Single frontal radiograph of the chest was obtained. Comparison: Comparison is made to chest radiograph 06/17/2023 FINDINGS: No lines and tubes are seen. The cardiomediastinal silhouette is normal. The lungs are clear. No evidence of pleural effusion or pneumothorax. IMPRESSION: No acute chest disease. ACT 112: Negative or not required by law. Electronically signed by: Horacio Dueñas M.D. 05/08/2024 7:00 PM Venous Doppler Study 05/08/24 18:36 CR Exam(s): US VENOUS RIGHT LOWER EXTREMITY EXAM: US Duplex Right Lower Extremity Veins CLINICAL HISTORY: leg swelling. TECHNIQUE: Real-time duplex ultrasound scan of the right lower extremity veins integrating B-mode two-dimensional vascular structure, Doppler spectral analysis, color flow Doppler imaging and compression. COMPARISON: No relevant prior studies available. FINDINGS: Deep veins: The right popliteal vein is noncompressible with echogenic material. There is some vascular flow noted within the popliteal vein. The right common femoral and femoral veins are compressible and demonstrate normal color flow and augmentation. Superficial veins: Unremarkable. No thrombus in the saphenofemoral junction. Soft tissues: No acute findings. No popliteal cyst. Other findings: The interrogated right calf veins are patent. IMPRESSION: The right popliteal vein is noncompressible with echogenic material. There is some vascular flow noted within the popliteal vein. Findings are consistent with nonocclusive deep venous thrombus. No proximal/central extension to involve the right femoral artery, femoral veins. Communications: Verify Receipt Electronically signed by: Kb Appiah MD 05/08/24 23:13 PM Chest CTA 05/08/24 18:42 CR Exam(s): CTA CHEST IV Amt: 120 ml optiray 320 EXAM: CT Angiography Chest With Intravenous Contrast CLINICAL HISTORY: R sided chest pain. TECHNIQUE: Axial computed tomographic angiography images of the chest with intravenous contrast. CTDI is 42.65 mGy and DLP is 848.35 mGy-cm. Automated exposure control was utilized for the study. A dose lowering technique was utilized adhering to the principles of ALARA. MIP reconstructed images were created and reviewed. COMPARISON: No relevant prior studies available. FINDINGS: Pulmonary arteries: Bilateral pulmonary emboli are noted bilaterally with the right sided emboli noted at the second order branching at the distal right pulmonary artery extending into subsegmental branches of the right anterior apical segments, the proximal right middle lobe and subsegmental branches of the right lower lobe. There are also emboli noted involving the left lower lobe, lingular segments and anterior apical segment. Aorta: No acute findings. No thoracic aortic aneurysm. Lungs: Minimal subsegmental dependent changes in the posterior lower lobes. Asymmetric ground-glass opacity involving the anterior and inferior aspect of the right middle lobe. Pleural space: Unremarkable. No significant effusion. No pneumothorax. Heart: The cardiac chambers are normal in size. Oblique imaging through the long axis of the heart demonstrate the RV/LV ratio at 0.82. No pericardial effusion. Bones/joints: No acute osseous abnormality. No abnormal alignment. Soft tissues: Unremarkable. Lymph nodes: Unremarkable. No enlarged lymph nodes. IMPRESSION: 1. Bilateral pulmonary emboli are noted bilaterally with the right sided emboli noted at the second order branching at the distal right pulmonary artery extending into subsegmental branches of the right anterior apical segments, the proximal right middle lobe and subsegmental branches of the right lower lobe. There are also emboli noted involving the left lower lobe, lingular segments and anterior apical segment. No significant right heart strain with the RV/LV ratio at 0.82. 2. Asymmetric ground-glass opacity involving the anterior and inferior aspect of the right middle lobe. This may represent atelectasis or a CT equivalent of a Gould's hump. No focal consolidation. No pleural effusion or pneumothorax. Communications: Call Doctor Pulmonary Embolism Electronically signed by: Kb Appiah MD 05/08/24 22:31 PM Discharge Plan Visit Data Chief Complaint: Chest Pain Stated Complaint: RT CHEST PAIN, SOB ED Provider: Adama Dillon Discharge Problem: Bilateral pulmonary embolism, Closed dislocation of patella Forms Stand Alone Forms: [employer] Prescriptions Prescriptions: No Action albuterol sulfate 90 mcg/actuation HFA aerosol inhaler See Rx Instructions .ROUTE .COMPLEX Qty: 18 1RF Dose Instruction: INHALE 2 PUFFS EVERY 6 HOURS NEEDED FOR SHORTNESS OF BREATH OR WHEEZING Rx Instructions: INHALE 2 PUFFS EVERY 6 HOURS NEEDED FOR SHORTNESS OF BREATH OR WHEEZING losartan 25 mg tablet 25 mg PO BID Qty: 180 3RF buspirone 10 mg tablet 10 mg PO BID Qty: 180 1RF fluoxetine 40 mg capsule 40 mg PO QAM Qty: 90 0RF albuterol sulfate 2.5 mg /3 mL (0.083 %) solution for nebulization 2.5 mg inhalation Q4H PRN (Reason: shortness of breath or wheezing) Qty: 180 0RF (DME) nebulizer accessories Kit See Rx Instructions .Route Qty: 1 0RF Rx Instructions: As directed hydroxyzine HCl 25 mg tablet 25 mg PO QID PRN (Reason: anxiety) Qty: 30 0RF magnesium 30 mg tablet 30 mg PO 3XWK eletriptan 20 mg tablet 20 mg PO ONCE PRN (Reason: migraine headache) Qty: 8 0RF montelukast 10 mg tablet 10 mg PO QPM Qty: 90 3RF aspirin [Candace Low Dose Aspirin] 81 mg Tablet,Delayed Release (Dr/Ec) 81 mg PO QAM fluticasone propionate 50 mcg/actuation spray,suspension 2 sprays intranasal DAILY PRN (Reason: Allergy Symptoms) multivitamin [Multiple Vitamins] Tablet 1 tab PO QAM Mirena 20 mcg/24 hours (5 yrs) 52 mg intrauterine device 1 ea IU ONCE omeprazole magnesium 20 mg tablet,delayed release (DR/EC) 20 mg PO QAM omega 5-puv-rmz-fish oil [Fish Oil] 1,000 mg (120 mg-180 mg) Capsule 2 cap PO QAM Referrals Referrals: Saima Mcdermott DO [Primary Care Provider] - Discharge Problem: Closed dislocation of patella Qualifiers: Encounter type: initial encounter Laterality: right Qualified Code(s): S83.004A - Unspecified dislocation of right patella, initial encounter
[2024-05-08 18:35] LABS: Alanine Aminotransferase 18 U/L (7-52); Albumin Globulin Ratio 1.2 (0.9-2); Albumin Level 4.3 gm/dl (3.4-5.0); Alkaline Phosphatase 97 U/L (34-104); Anion Gap 10 (3-11); Aspartate Aminotransferase 18 U/L (13-39); BUN Creatinine Ratio 17.2 (10-20); Bilirubin,Total 0.4 mg/dl (0.2-1.0); Blood Urea Nitrogen 10 mg/dl (6-23); Calcium 9.4 mg/dl (8.6-10.3); Carbon Dioxide 27 mmol/L (21-32); Chloride 101 mmol/L (98-107); Creatinine Clr Calc Pharmacy 177.3 ml/min; Est GFR (African American) 130.8 ml/min; Est GFR (Non-African American) 112.9 ml/min; Globulin 3.6 gm/dl (2.5-4.0); Glucose 102 mg/dl (70-99(Fasting)); Potassium 3.6 mmol/L (3.5-5.1); Sodium 138 mmol/L (136-145); Total Protein 7.9 gm/dl (6.0-8.3)
[2024-05-08 18:41] LABS: Troponin I High Sensitivity < 2.3 pg/ml (0-14)
[2024-05-08 18:47] LABS: Partial Thromboplastin Time 27 Seconds (21-31); Prothrombin Time 10.5 Seconds (9.0-12.0)
[2024-05-08] MEDS: KETOROLAC TROMETHAMINE 15 MG/ML VIAL IV ONE (18:52)
[2024-05-08] MEDS: SODIUM CHLORIDE 0.9% 1,000 ML IV ONE (18:53)
[2024-05-08 18:56] LABS: D Dimer 4230 ug/L FEU (0-500)
--- NOTE | 2024-05-08 19:02 | XRay Report ---
XR chest 1V portable CLINICAL HISTORY: Chest pain, nonspecific TECHNIQUE: Single frontal radiograph of the chest was obtained. Comparison: Comparison is made to chest radiograph 06/17/2023 FINDINGS: No lines and tubes are seen. The cardiomediastinal silhouette is normal. The lungs are clear. No evid ence of pleural effusion or pneumothorax. IMPRESSION: No acute chest disease. ACT 112: Negative or not required by law. Electronically signed by: Horacio Dueñas M.D. 05/08/2024 7:00 PM
[2024-05-08 19:08] LABS: Influenza A virus by PCR Negative (Neg); Influenza B virus by PCR Negative (Neg); RSV by PCR Negative (Neg); SARS CoV2 RNA(COVID-19) Ceph NEGATIVE (Negative)
[2024-05-08] MEDS: MoRPHine SULFATE 10 MG/ML CARP/VIAL IV STA (19:17)
[2024-05-08] MEDS: OPTIRAY 320 125ml IV ONE (20:34)
[2024-05-08] MEDS: Heparin IV Adult Wt-Based Standard w/ INITIAL Bolus Protocol IV STA (21:53)
--- NOTE | 2024-05-08 22:32 | CT Scan Report ---
Exam(s): CTA CHEST IV Amt: 120 ml optiray 320 EXAM: CT Angiography Chest With Intravenous Contrast CLINICAL HISTORY: R sided chest pain. TECHNIQUE: Axial computed tomographic angiography images of the chest with intravenous contrast. CTDI is 42.65 mGy and DLP is 848.35 mGy-cm. Automated exposure control was utilized for the study. A dose lowering technique was utilized adhering to the principles of ALARA. MIP reconstructed images were created and reviewed. COMPARISON: No relevant prior studies available. FINDINGS: Pulmonary arteries: Bilateral pulmonary emboli are noted bilaterally with the right sided emboli noted at the second order branching at the distal right pulmonary artery extending into subsegmental branches of the right anterior apical segments, the proximal right middle lobe and subsegmental branches of the right lower lobe. There are also emboli noted involving the left lower lobe, lingular segments and anterior apical segment. Aorta: No acute findings. No thoracic aortic aneurysm. Lungs: Minimal subsegmental dependent changes in the posterior lower lobes. Asymmetric ground-glass opacity involving the anterior and inferior aspect of the right middle lobe. Pleural space: Unremarkable. No significant effusion. No pneumothorax. Heart: The cardiac chambers are normal in size. Oblique imaging through the long axis of the heart demonstrate the RV/LV ratio at 0.82. No pericardial effusion. Bones/joints: No acute osseous abnormality. No abnormal alignment. Soft tissues: Unremarkable. Lymph nodes: Unremarkable. No enlarged lymph nodes. IMPRESSION: 1. Bilateral pulmonary emboli are noted bilaterally with the right sided emboli noted at the second order branching at the distal right pulmonary artery extending into subsegmental branches of the right anterior apical segments, the proximal right middle lobe and subsegmental branches of the right lower lobe. There are also emboli noted involving the left lower lobe, lingular segments and anterior apical segment. No significant right heart strain with the RV/LV ratio at 0.82. 2. Asymmetric ground-glass opacity involving the anterior and inferior aspect of the right middle lobe. This may represent atelectasis or a CT equivalent of a Gould's hump. No focal consolidation. No pleural effusion or pneumothorax. Communications: Call Doctor Pulmonary Embolism Electronically signed by: Kb Appiah MD 05/08/24 22:31 PM
[2024-05-08] MEDS: HEPARIN SOD (PORCINE) 1000 UNIT/ML IV ONE (22:35)
[2024-05-08] MEDS: HEPARIN SODIUM/DEXTROSE 25,000 UNITS/500 ML BAG IV SCH (22:35)
--- NOTE | 2024-05-08 23:14 | Ultrasound Report ---
Exam(s): US VENOUS RIGHT LOWER EXTREMITY EXAM: US Duplex Right Lower Extremity Veins CLINICAL HISTORY: leg swelling. TECHNIQUE: Real-time duplex ultrasound scan of the right lower extremity veins integrating B-mode two-dimensional vascular structure, Doppler spectral analysis, color flow Doppler imaging and compression. COMPARISON: No relevant prior studies available. FINDINGS: Deep veins: The right popliteal vein is noncompressible with echogenic material. There is some vascular flow noted within the popliteal vein. The right common femoral and femoral veins are compressible and demonstrate normal color flow and augmentation. Superficial veins: Unremarkable. No thrombus in the saphenofemoral junction. Soft tissues: No acute findings. No popliteal cyst. Other findings: The interrogated right calf veins are patent. IMPRESSION: The right popliteal vein is noncompressible with echogenic material. There is some vascular flow noted within the popliteal vein. Findings are consistent with nonocclusive deep venous thrombus. No proximal/central extension to involve the right femoral artery, femoral veins. Communications: Verify Receipt Electronically signed by: Kb Appiah MD 05/08/24 23:13 PM
--- NOTE | 2024-05-08 23:51 | History & Physical Report ---
Date of Service May 08, 2024 Assessment & Plan (1) Bilateral pulmonary embolism: (2) Deep venous thrombosis of right popliteal vein: (3) Dislocation of right patella: (4) Chronic GERD: (5) Asthma: (6) Benign essential hypertension: (7) Anxiety: Plan Bilateral pulmonary emboli/nonocclusive DVT of right popliteal vein- Continue heparin drip per protocol begun in the ED Has likely occurred on the basis of decreased mobility due to need for use of a brace for stability due to recurrence of patellar dislocation Her mother has a history of DVT in lower extremity after trauma Recurrent dislocation of right patella- Right patella was relocated by the ED Follows with orthopedic surgery Dr. Arellano, and reportedly has a surgery scheduled for sometime in May Hypertension- Continue aspirin and losartan Asthma- Continue albuterol sulfate, montelukast GERD- Continue omeprazole/pantoprazole Anxiety- Continue buspirone, fluoxetine, and hydroxyzine as needed History of Present Illness Chief Complaint: The patient presents to the emergency department due to acute onset of right- sided chest pain that began earlier in the day prior to arrival Primary Care Provider: Saima Mcdermott DO The patient is a 43-year-old female with a past medical history including dislocation of right patella, positive RACHEL, hyperlipidemia, chronic GERD, asthma, hypertension, morbid obesity, and anxiety. She has been wearing a brace on her right knee, due to recurrent dislocation of right patella, and has a surgery scheduled for sometime in May. She did develop worsening discomfort in her right leg recently, and presents to the ED due to acute onset of right- sided chest pain. Allergies Allergy/AdvReac Type Severity Reaction Status Date / Time Bactrim Allergy Unknown hives Verified 10/16/16 12:17 cefaclor Allergy Unknown hives Verified 11/16/23 13:04 clarithromycin Allergy Unknown hives Verified 11/16/23 13:04 erythromycin base Allergy Unknown hives Verified 11/16/23 13:04 Penicillins Allergy Unknown hives Verified 11/16/23 13:04 sulfamethoxazole Allergy Unknown hives Verified 11/16/23 13:04 trimethoprim Allergy Unknown hives Verified 11/16/23 13:04 Home Medications Medication Instructions Recorded Confirmed Type aspirin 81 mg tablet,delayed 81 mg PO QAM 09/11/21 11/16/23 History release (Candace Low Dose Aspirin) fluticasone propionate 50 2 sprays intranasal DAILY PRN 09/11/21 11/16/23 History mcg/actuation nasal Allergy Symptoms spray,suspension multivitamin (Multiple Vitamins 1 tab PO QAM 09/11/21 11/16/23 History tablet) magnesium 30 mg tablet 30 mg PO 3XWK 09/17/21 11/16/23 History eletriptan 20 mg tablet 20 mg PO ONCE PRN migraine 04/23/22 11/16/23 Rx headache #8 tabs albuterol sulfate 90 mcg/actuation See Rx Instructions .Route 10/15/22 11/16/23 Rx aerosol inhaler .COMPLEX #18 ea albuterol sulfate 2.5 mg/3 mL 2.5 mg (3 mL) inhalation Q4H PRN 10/23/22 11/16/23 Rx (0.083 %) solution for nebulization shortness of breath or wheezing #180 mL nebulizer accessories #1 ea 10/23/22 07/13/23 Rx hydroxyzine HCl 25 mg tablet 25 mg PO QID PRN anxiety #30 tabs 06/15/23 11/16/23 Rx losartan 25 mg tablet 25 mg PO BID #180 tabs 07/19/23 11/16/23 Rx montelukast 10 mg tablet 10 mg PO QPM #90 tabs 09/27/23 11/16/23 Rx levonorgestrel 21 mcg/24 hr (up to 1 ea intrauterine ONCE 11/03/23 11/16/23 History 8 years) 52 mg intrauterine device (Mirena) omega 7-wmg-jkt-fish oil 1,000 mg 2 cap PO QAM 11/03/23 11/16/23 History (120 mg-180 mg) capsule (Fish Oil) omeprazole magnesium 20 mg 20 mg PO QAM 11/03/23 11/16/23 History tablet,delayed release buspirone 10 mg tablet 10 mg PO BID #180 tabs 01/10/24 Rx fluoxetine 40 mg capsule 40 mg PO QAM #90 caps 01/13/24 Rx Past Med/Surg History Problem List (Updated 05/09/24 @ 02:32 by Freddy Garner MD) Deep venous thrombosis of right popliteal vein Closed dislocation of patella (Acute) Bilateral pulmonary embolism (Acute) Dislocation of right patella Change in bowel habits Positive RACHEL (antinuclear antibody) Thyroid nodule Cervicalgia Thyromegaly History of hyperlipidemia Abnormal mammogram Allergic rhinitis (Acute) Bleeding disorder (Acute) Migraine headache (Acute) HLD (hyperlipidemia) Allergic rhinitis Chronic GERD MTHFR gene mutation Asthma well controlled -- last used rescue inhaler Fall 2022. Benign essential hypertension Anxiety Medical History History of COVID-19 05/2021: severe flu symptoms. no hospitalization. Obesity Surgical History History of esophagogastroduodenoscopy (EGD) History of dilatation and curettage D&E History of colonoscopy History of myringotomy BMT (multiple times) Family History Father Anxiety Depression Lung disease Hypertension Mother Hypertension Grandfather Lung disease Cancer Other No family history of adverse response to anesthesia Denies family history of Ovarian cancer Prostate cancer Myocardial infarction Breast cancer Colorectal cancer Social History Smoking Status: Current some day smoker Tobacco Type: E-cigarettes / Vaping Cigarettes Per Day: vapes daily; Second Hand Exposure: No; Do You Dip or Chew Tobacco: No; Hx Alcohol Use: Yes Hx Substance Use: No Preferred Language: Swedish Communication Ability: Effective Visual Impairment: No Limitations Hearing Ability: Normal 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 Beliefs That Will Affect Care: None marital status: Single Current Living Situation: Family Current Living Situation Comment: lives with fiance and 3 kids current occupational status: employed How many Children do You have: 3 Other Information That Helps Us Care for You: No Feels Safe at Home: Yes Safety Concerns: Feels Safe At This Time Childhood Exposure to Second-Hand Smoke: Yes Diet: regular caffeine: Yes during the past year weight has: remained stable Dental Care, Regularly: Yes Physical Activity Frequency: 1-2 Times per Week Seatbelt Use: always Sunscreen Use: Yes (sometimes) Assistive Devices: Crutches and Glasses Review of Systems Review of Systems: The patient denies palpitations, cough, lower extremity swelling, sore throat, fevers, chills, sweats, fatigue, nausea, vomiting, diarrhea , constipation, abdominal pain, pelvic pain, blood in urine or stool, dysuria, urinary frequency or urgency, lightheadedness, dizziness, headache, memory loss, loss of consciousness, rash, abnormal bruising or bleeding, focal or generalized weakness, numbness or tingling in arms or left leg, generalized arthralgias or myalgias, back or neck pain, or night sweats. The review of systems is otherwise negative other than for that already noted above, and at least 10 systems have been reviewed. Physical Exam Physical Exam: The patient is awake, alert and oriented 3, well developed and well nourished, normocephalic and atraumatic, lying in bed and in no acute distress. HEENT--PERRL, EOMI, mucous membranes and oropharynx dry. Neck--supple. No JVD. No bruits. Thyroid normal, trachea midline, no adenopathy. Heart--normal S1 and S2. No murmurs, rubs or gallops. Lungs--clear bilaterally, no respiratory distress, no accessory muscle use. Abdomen--normal bowel sounds and soft. Nontender. Nondistended, no hernias or masses, no organomegaly. Extremities--no cyanosis or clubbing. No edema. There are good distal pulses b/l. Dermatologic--normal skin turgor, normal color, no abnormal lymph nodes, no rash. Neurologic--cranial nerves II through XII grossly intact. Rheumatologic--limited range of motion of right leg and knee Psychiatric--normal affect. Results & Data Results & Data Vital Signs (Past 12 Hours) Vital Signs Temp Pulse Pulse Resp BP BP Pulse Ox 05/08/24 22:36 79 19 94 05/08/24 22:01 114/77 05/08/24 22:00 87 21 95 05/08/24 21:36 89 17 95 05/08/24 21:24 85 22 118/70 05/08/24 20:00 97 05/08/24 19:45 94 05/08/24 19:00 80 23 96 05/08/24 18:39 83 32 H 97 05/08/24 18:14 98 H 05/08/24 18:14 97 05/08/24 18:14 90 22 129/99 97 05/08/24 18:14 98 05/08/24 17:45 36.5 C 102 H 20 168/84 H 94 O2 Del Method 05/08/24 22:36 Room Air 05/08/24 22:01 05/08/24 22:00 05/08/24 21:36 Room Air 05/08/24 21:24 05/08/24 20:00 05/08/24 19:45 05/08/24 19:00 05/08/24 18:39 05/08/24 18:14 05/08/24 18:14 Room Air 05/08/24 18:14 Room Air 05/08/24 18:14 Room Air 05/08/24 17:45 Room Air Laboratory Results Laboratory Results WBC 12.46 K/ul (4.8-10.8) H 05/08/24 17:57 RBC 4.91 M/uL (4.20-5.40) 05/08/24 17:57 Hgb 14.0 g/dl (12.0-16.0) 05/08/24 17:57 Hct 43.4 % (37.0-47.0) 05/08/24 17:57 MCV 88.4 fL (80.0-100.0) 05/08/24 17:57 MCH 28.5 pg (25.0-34.0) 05/08/24 17:57 MCHC 32.3 g/dL (32.0-36.0) 05/08/24 17:57 RDW Std Deviation 40.9 fL (36.4-46.3) 05/08/24 17:57 RDW Coeff of Fiorella 12.6 % (11.5-14.5) 05/08/24 17:57 Plt Count 346 K/uL (130-400) 05/08/24 17:57 MPV 9.5 fL (9.4-12.4) 05/08/24 17:57 Immature Gran % (Auto) 0.3 % 05/08/24 17:57 Neut % (Auto) 70.9 % 05/08/24 17:57 Lymph % (Auto) 21.3 % 05/08/24 17:57 [place] % (Auto) 6.0 % 05/08/24 17:57 Eos % (Auto) 0.9 % 05/08/24 17:57 Baso % (Auto) 0.6 % 05/08/24 17:57 Neut # (Auto) 8.84 K/uL (1.40-6.50) H 05/08/24 17:57 Lymph # (Auto) 2.65 K/uL (1.20-3.40) 05/08/24 17:57 [place] # (Auto) 0.75 K/uL (0.11-0.59) H 05/08/24 17:57 Eos # (Auto) 0.11 K/uL (0.00-0.50) 05/08/24 17:57 Baso # (Auto) 0.07 K/uL (0.00-0.20) 05/08/24 17:57 Immature Gran # (Auto) 0.04 K/uL (0.01-0.20) 05/08/24 17:57 PT 10.5 Seconds (9.0-12.0) 05/08/24 17:57 INR 1.0 (0.9-1.1) 05/08/24 17:57 APTT 27 Seconds (21-31) 05/08/24 17:57 PTT Ratio 1.0 05/08/24 17:57 D-Dimer 4230 ug/L FEU (0-500) H* 05/08/24 17:57 Sodium 138 mmol/L (136-145) 05/08/24 17:57 Potassium 3.6 mmol/L (3.5-5.1) 05/08/24 17:57 Chloride 101 mmol/L (98-107) 05/08/24 17:57 Carbon Dioxide 27 mmol/L (21-32) 05/08/24 17:57 Anion Gap 10 (3-11) 05/08/24 17:57 BUN 10 mg/dl (6-23) 05/08/24 17:57 Creatinine 0.58 mg/dl (0.6-1.2) L 05/08/24 17:57 Est Cr Clr Drug Dosing 177.3 ml/min 05/08/24 17:57 Est GFR ( Amer) 130.8 ml/min 05/08/24 17:57 Est GFR (Non-Af Amer) 112.9 ml/min 05/08/24 17:57 BUN/Creatinine Ratio 17.2 (10-20) 05/08/24 17:57 Glucose 102 mg/dl (70-99(Fasting)) H 05/08/24 17:57 Calcium 9.4 mg/dl (8.6-10.3) 05/08/24 17:57 Total Bilirubin 0.4 mg/dl (0.2-1.0) 05/08/24 17:57 AST 18 U/L (13-39) 05/08/24 17:57 ALT 18 U/L (7-52) 05/08/24 17:57 Alkaline Phosphatase 97 U/L (34-104) 05/08/24 17:57 Troponin I High Sens < 2.3 pg/ml (0-14) 05/08/24 17:57 Total Protein 7.9 gm/dl (6.0-8.3) 05/08/24 17:57 Albumin 4.3 gm/dl (3.4-5.0) 05/08/24 17:57 Globulin 3.6 gm/dl (2.5-4.0) 05/08/24 17:57 Albumin/Globulin Ratio 1.2 (0.9-2) 05/08/24 17:57 SARS-CoV-2 (PCR) NEGATIVE (Negative) 05/08/24 18:10 Influenza Type A (PCR) Negative (Neg) 05/08/24 18:10 Influenza Type B (PCR) Negative (Neg) 05/08/24 18:10 RSV (RT-PCR) Negative (Neg) 05/08/24 18:10 Impressions Chest X-Ray 05/08/24 17:48 XR chest 1V portable CLINICAL HISTORY: Chest pain, nonspecific TECHNIQUE: Single frontal radiograph of the chest was obtained. Comparison: Comparison is made to chest radiograph 06/17/2023 FINDINGS: No lines and tubes are seen. The cardiomediastinal silhouette is normal. The lungs are clear. No evidence of pleural effusion or pneumothorax. IMPRESSION: No acute chest disease. ACT 112: Negative or not required by law. Electronically signed by: Horacio Dueñas M.D. 05/08/2024 7:00 PM Venous Doppler Study 05/08/24 18:36 CR Exam(s): US VENOUS RIGHT LOWER EXTREMITY EXAM: US Duplex Right Lower Extremity Veins CLINICAL HISTORY: leg swelling. TECHNIQUE: Real-time duplex ultrasound scan of the right lower extremity veins integrating B-mode two-dimensional vascular structure, Doppler spectral analysis, color flow Doppler imaging and compression. COMPARISON: No relevant prior studies available. FINDINGS: Deep veins: The right popliteal vein is noncompressible with echogenic material. There is some vascular flow noted within the popliteal vein. The right common femoral and femoral veins are compressible and demonstrate normal color flow and augmentation. Superficial veins: Unremarkable. No thrombus in the saphenofemoral junction. Soft tissues: No acute findings. No popliteal cyst. Other findings: The interrogated right calf veins are patent. IMPRESSION: The right popliteal vein is noncompressible with echogenic material. There is some vascular flow noted within the popliteal vein. Findings are consistent with nonocclusive deep venous thrombus. No proximal/central extension to involve the right femoral artery, femoral veins. Communications: Verify Receipt Electronically signed by: Kb Appiah MD 05/08/24 23:13 PM Chest CTA 05/08/24 18:42 CR Exam(s): CTA CHEST IV Amt: 120 ml optiray 320 EXAM: CT Angiography Chest With Intravenous Contrast CLINICAL HISTORY: R sided chest pain. TECHNIQUE: Axial computed tomographic angiography images of the chest with intravenous contrast. CTDI is 42.65 mGy and DLP is 848.35 mGy-cm. Automated exposure control was utilized for the study. A dose lowering technique was utilized adhering to the principles of ALARA. MIP reconstructed images were created and reviewed. COMPARISON: No relevant prior studies available. FINDINGS: Pulmonary arteries: Bilateral pulmonary emboli are noted bilaterally with the right sided emboli noted at the second order branching at the distal right pulmonary artery extending into subsegmental branches of the right anterior apical segments, the proximal right middle lobe and subsegmental branches of the right lower lobe. There are also emboli noted involving the left lower lobe, lingular segments and anterior apical segment. Aorta: No acute findings. No thoracic aortic aneurysm. Lungs: Minimal subsegmental dependent changes in the posterior lower lobes. Asymmetric ground-glass opacity involving the anterior and inferior aspect of the right middle lobe. Pleural space: Unremarkable. No significant effusion. No pneumothorax. Heart: The cardiac chambers are normal in size. Oblique imaging through the long axis of the heart demonstrate the RV/LV ratio at 0.82. No pericardial effusion. Bones/joints: No acute osseous abnormality. No abnormal alignment. Soft tissues: Unremarkable. Lymph nodes: Unremarkable. No enlarged lymph nodes. IMPRESSION: 1. Bilateral pulmonary emboli are noted bilaterally with the right sided emboli noted at the second order branching at the distal right pulmonary artery extending into subsegmental branches of the right anterior apical segments, the proximal right middle lobe and subsegmental branches of the right lower lobe. There are also emboli noted involving the left lower lobe, lingular segments and anterior apical segment. No significant right heart strain with the RV/LV ratio at 0.82. 2. Asymmetric ground-glass opacity involving the anterior and inferior aspect of the right middle lobe. This may represent atelectasis or a CT equivalent of a Gould's hump. No focal consolidation. No pleural effusion or pneumothorax. Communications: Call Doctor Pulmonary Embolism Electronically signed by: Kb Appiah MD 05/08/24 22:31 PM Code Status & VTE Plan Code Status full code VTE Prophylaxis Plan VTE Prophylaxis will be ordered: Yes PG Care Time/CCT Total # of Minutes Spent Total Time Spent with Patient: Total time spent is greater than 50% in coordination of care (as documented) at patient's floor/unit and/or counseling patient: Coding Level of Care Code 78879 INT INP/OBS CARE 3/75MIN Diagnoses Bilateral pulmonary embolism I26.99 Deep venous thrombosis of right popliteal vein I82.431 Dislocation of right patella S83.004A Chronic GERD K21.9 Moderate persistent asthma without complication J45.40 Asthma severity: moderate Asthma persistence: persistent Asthma complication type: uncomplicated Benign essential hypertension I10 Anxiety F41.9 (5) Asthma Asthma severity: moderate Asthma persistence: persistent Asthma complication type: uncomplicated Qualified Code(s): J45.40 - Moderate persistent asthma, uncomplicated
[2024-05-09] MEDS ORDERED: ALBUTEROL HFA 8 GM INHALER INH PRN (00:22)
[2024-05-09] MEDS ORDERED: ONDANSETRON INJ 2 MG/ML 2 ML VIAL IV PRN (00:22)
[2024-05-09] MEDS: ACETAMINOPHEN 325 MG TAB PO PRN (00:50)
[2024-05-09] MEDS ORDERED: LEVONORGESTREL (MIRENA) IUD PV SCH (03:00)
[2024-05-09 04:52] LABS: Basophils # (auto) 0.06 K/uL (0.00-0.20); Basophils % (auto) 0.6 %; Eosinophils # (auto) 0.18 K/uL (0.00-0.50); Eosinophils % (auto) 1.9 %; Hematocrit (blood only) 37.8 % (37.0-47.0); Hemoglobin 12.2 g/dl (12.0-16.0); Immature Granulocytes # (auto) 0.02 K/uL (0.01-0.20); Immature Granulocytes % (auto) 0.2 %; Lymphocytes # (auto) 3.62 K/uL (1.20-3.40); Lymphocytes % (auto) 37.9 %; Mean Corpuscular Hgb Conc 32.3 g/dL (32.0-36.0); Mean Platelet Volume 9.4 fL (9.4-12.4); Monocytes # (auto) 0.71 K/uL (0.11-0.59); Monocytes % (auto) 7.4 %; Neutrophils # (auto) 4.95 K/uL (1.40-6.50); Platelet Count 280 K/uL (130-400); RDW Coefficient of Variation 12.6 % (11.5-14.5); RDW Standard Deviation 41.3 fL (36.4-46.3); White Blood Count 9.54 K/ul (4.8-10.8)
[2024-05-09 05:10] LABS: Albumin Level 3.5 gm/dl (3.4-5.0); BUN Creatinine Ratio 13.8 (10-20); Calcium 8.7 mg/dl (8.6-10.3); Creatinine Clr Calc Pharmacy 170.7 ml/min; Est GFR (Non-African American) 108.7 ml/min; Magnesium 1.8 mg/dl (1.7-2.4); Phosphorus 3.9 mg/dl (2.5-4.9); Potassium 4.3 mmol/L (3.5-5.1)
[2024-05-09 05:13] LABS: ANTI-Xa, UFH(UnfractionatedHep 0.64 IU/ml (0.3-0.7)
--- NOTE | 2024-05-09 06:57 | XRay Report ---
XR knee RT 1 or 2V routine CLINICAL HISTORY: POST REDUCTION COMPARISON: MRI of the right knee April 05, 2024. Right knee radiographs performed earlier today. FINDINGS: Patellofemoral alignment has improved although patella remains laterally subluxed when com pared to right knee radiographs performed earlier today. Lateral knee soft tissue swelling is present . Old osteochondral injury of the medial aspect the patella is noted. This was shown on previous MRI. There is lateral compartment osteophytosis. There is a small right knee joint effusion. There are no acute fractures. IMPRESSION: 1. Improved patellofemoral alignment following reduction. Patella remains laterally subluxed. 2. No acute fractures. 3. Small right knee joint effusion. ACT 112: Negative or not required by law. Electronically signed by: Javier Mathur M.D. 05/09/2024 6:56 AM
--- NOTE | 2024-05-09 07:06 | XRay Report ---
XR knee RT 1 or 2V routine CLINICAL HISTORY: ?patella dislocation; knee pain COMPARISON: Right knee MRI April 05, 2024. Right knee radiographs April 03, 2024. FINDINGS: Lateral dislocation of the patella with respect to the femur is noted. There is a small roseline int effusion. No acute fractures are identified. Bony irregularity of the patella is likely chronic. This appears similar to prior MRI and radiographs. Lateral and patellofemoral compartment osteophytos is is present. There is lateral soft tissue swelling. IMPRESSION: 1. Lateral patellar dislocation. 2. Small joint effusion. Lateral knee soft tissue swelling. 3. No acute fractures. ACT 112: Negative or not required by law. Electronically signed by: Javier Mathur M.D. 05/09/2024 7:05 AM
[2024-05-09] MEDS: FLUoxetine HCL 20 MG CAP PO SCH (08:21)
[2024-05-09] MEDS: LOSARTAN POTASSIUM 25 MG TAB PO SCH (08:22)
[2024-05-09] MEDS: ASPIRIN 81 MG ECTAB PO SCH (08:22)
[2024-05-09] MEDS: busPIRone 5 MG TAB PO SCH (08:23)
[2024-05-09] MEDS: PANTOprazole 40 MG TAB PO SCH (08:24)
--- NOTE | 2024-05-09 11:44 | Electrocardiogram Report ---
Test Reason : Blood Pressure : */* mmHG Vent. Rate : 92 BPM Atrial Rate : 92 BPM P-R Int : 152 ms QRS Dur : 78 ms QT Int : 356 ms P-R-T Axes : -26 0 -17 degrees QTcB Int : 440 ms Normal sinus rhythm Possible Inferior infarct , age undetermined Abnormal ECG When compared with ECG of 17-Jun-2023 16:51, Borderline criteria for Inferior infarct are now Present Inverted T waves have replaced nonspecific T wave abnormality in Inferior leads Confirmed by Valentin Jerome ([id number]) on 05/09/2024 11:44:32 AM Referred By: REFERRED SELF Confirmed By: Valentin Jerome
--- NOTE | 2024-05-09 13:43 | Hospitalist Progress Note ---
Date of Service May 09, 2024 Assessment & Plan (1) Bilateral pulmonary embolism: (2) Deep venous thrombosis of right popliteal vein: (3) Dislocation of right patella: (4) Chronic GERD: (5) Asthma: (6) Benign essential hypertension: (7) Anxiety: Plan Bilateral pulmonary emboli Due to right popliteal DVT Continue heparin drip per protocol begun in the ED Switch to p.o. Eliquis therapeutic dose tonight Has likely occurred on the basis of decreased mobility due to need for use of a brace for stability due to recurrence of patellar dislocation Her mother has a history of DVT in lower extremity after trauma Will check two-step test tomorrow prior to discharge Recurrent dislocation of right patella- Right patella was relocated by the ED Follows with orthopedic surgery Dr. Arellano, and reportedly has a surgery scheduled for sometime in May Advised to follow-up with orthopedics as per prior plan Hypertension- Continue aspirin and losartan Asthma- Continue albuterol sulfate, montelukast GERD- Continue omeprazole/pantoprazole Anxiety- Continue buspirone, fluoxetine, and hydroxyzine as needed Full code Likely discharge tomorrow Admission and Anticipated Discharge Date Admission Date: May 08, 2024 Subjective Patient feels well at this time. Denies chest pain or shortness of breath. Review of Systems Review of Systems: All systems reviewed & are unremarkable except as noted in Subjective Physical Exam Physical Exam: General: Awake, conversant. Morbidly obese Heart: S1, S2/regular rate and rhythm, no murmur rubs or gallops Lungs: Clear to auscultation bilaterally. Normal effort Abdomen: Soft/nontender/nondistended. No hepatosplenomegaly Extremities: No clubbing/cyanosis. No edema Behavior: Appropriate, cooperative Results & Data Results & Data Vital Signs (Past 12 Hours) Vital Signs Temp Pulse Pulse Resp BP Pulse Ox O2 Del Method 05/09/24 11:10 36.7 C 93 H 18 150/83 H 92 Room Air 05/09/24 08:00 Room Air 05/09/24 07:45 36.5 C 82 18 158/90 H 92 Room Air 05/09/24 07:00 61 05/09/24 02:52 36.5 C 63 16 138/79 92 Room Air Laboratory Results Abnormal lab results 05/08/24 05/09/24 Range/Units 17:57 04:35 WBC 12.46 H (4.8-10.8) K/ul Neut # (Auto) 8.84 H (1.40-6.50) K/uL Lymph # (Auto) 3.62 H (1.20-3.40) K/uL [place] # (Auto) 0.75 H 0.71 H (0.11-0.59) K/uL D-Dimer 4230 H* (0-500) ug/L FEU Creatinine 0.58 L (0.6-1.2) mg/dl Glucose 102 H 112 H (70-99(Fasting)) mg/dl Diagnostic Findings Chest X-Ray 05/08/24 17:48 XR chest 1V portable CLINICAL HISTORY: Chest pain, nonspecific TECHNIQUE: Single frontal radiograph of the chest was obtained. Comparison: Comparison is made to chest radiograph 06/17/2023 FINDINGS: No lines and tubes are seen. The cardiomediastinal silhouette is normal. The lungs are clear. No evidence of pleural effusion or pneumothorax. IMPRESSION: No acute chest disease. ACT 112: Negative or not required by law. Electronically signed by: Horacio Dueñas M.D. 05/08/2024 7:00 PM Venous Doppler Study 05/08/24 18:36 CR Exam(s): US VENOUS RIGHT LOWER EXTREMITY EXAM: US Duplex Right Lower Extremity Veins CLINICAL HISTORY: leg swelling. TECHNIQUE: Real-time duplex ultrasound scan of the right lower extremity veins integrating B-mode two-dimensional vascular structure, Doppler spectral analysis, color flow Doppler imaging and compression. COMPARISON: No relevant prior studies available. FINDINGS: Deep veins: The right popliteal vein is noncompressible with echogenic material. There is some vascular flow noted within the popliteal vein. The right common femoral and femoral veins are compressible and demonstrate normal color flow and augmentation. Superficial veins: Unremarkable. No thrombus in the saphenofemoral junction. Soft tissues: No acute findings. No popliteal cyst. Other findings: The interrogated right calf veins are patent. IMPRESSION: The right popliteal vein is noncompressible with echogenic material. There is some vascular flow noted within the popliteal vein. Findings are consistent with nonocclusive deep venous thrombus. No proximal/central extension to involve the right femoral artery, femoral veins. Communications: Verify Receipt Electronically signed by: Kb Appiah MD 05/08/24 23:13 PM Chest CTA 05/08/24 18:42 CR Exam(s): CTA CHEST IV Amt: 120 ml optiray 320 EXAM: CT Angiography Chest With Intravenous Contrast CLINICAL HISTORY: R sided chest pain. TECHNIQUE: Axial computed tomographic angiography images of the chest with intravenous contrast. CTDI is 42.65 mGy and DLP is 848.35 mGy-cm. Automated exposure control was utilized for the study. A dose lowering technique was utilized adhering to the principles of ALARA. MIP reconstructed images were created and reviewed. COMPARISON: No relevant prior studies available. FINDINGS: Pulmonary arteries: Bilateral pulmonary emboli are noted bilaterally with the right sided emboli noted at the second order branching at the distal right pulmonary artery extending into subsegmental branches of the right anterior apical segments, the proximal right middle lobe and subsegmental branches of the right lower lobe. There are also emboli noted involving the left lower lobe, lingular segments and anterior apical segment. Aorta: No acute findings. No thoracic aortic aneurysm. Lungs: Minimal subsegmental dependent changes in the posterior lower lobes. Asymmetric ground-glass opacity involving the anterior and inferior aspect of the right middle lobe. Pleural space: Unremarkable. No significant effusion. No pneumothorax. Heart: The cardiac chambers are normal in size. Oblique imaging through the long axis of the heart demonstrate the RV/LV ratio at 0.82. No pericardial effusion. Bones/joints: No acute osseous abnormality. No abnormal alignment. Soft tissues: Unremarkable. Lymph nodes: Unremarkable. No enlarged lymph nodes. IMPRESSION: 1. Bilateral pulmonary emboli are noted bilaterally with the right sided emboli noted at the second order branching at the distal right pulmonary artery extending into subsegmental branches of the right anterior apical segments, the proximal right middle lobe and subsegmental branches of the right lower lobe. There are also emboli noted involving the left lower lobe, lingular segments and anterior apical segment. No significant right heart strain with the RV/LV ratio at 0.82. 2. Asymmetric ground-glass opacity involving the anterior and inferior aspect of the right middle lobe. This may represent atelectasis or a CT equivalent of a Gould's hump. No focal consolidation. No pleural effusion or pneumothorax. Communications: Call Doctor Pulmonary Embolism Electronically signed by: Kb Appiah MD 05/08/24 22:31 PM Knee X-Ray 05/08/24 19:11 XR knee RT 1 or 2V routine CLINICAL HISTORY: ?patella dislocation; knee pain COMPARISON: Right knee MRI April 05, 2024. Right knee radiographs April 03, 2024. FINDINGS: Lateral dislocation of the patella with respect to the femur is noted. There is a small joint effusion. No acute fractures are identified. Bony irregularity of the patella is likely chronic. This appears similar to prior MRI and radiographs. Lateral and patellofemoral compartment osteophytosis is present. There is lateral soft tissue swelling. IMPRESSION: 1. Lateral patellar dislocation. 2. Small joint effusion. Lateral knee soft tissue swelling. 3. No acute fractures. ACT 112: Negative or not required by law. Electronically signed by: Javier Mathur M.D. 05/09/2024 7:05 AM Knee X-Ray 05/08/24 21:40 XR knee RT 1 or 2V routine CLINICAL HISTORY: POST REDUCTION COMPARISON: MRI of the right knee April 05, 2024. Right knee radiographs performed earlier today. FINDINGS: Patellofemoral alignment has improved although patella remains laterally subluxed when compared to right knee radiographs performed earlier today. Lateral knee soft tissue swelling is present. Old osteochondral injury of the medial aspect the patella is noted. This was shown on previous MRI. There is lateral compartment osteophytosis. There is a small right knee joint effusion. There are no acute fractures. IMPRESSION: 1. Improved patellofemoral alignment following reduction. Patella remains laterally subluxed. 2. No acute fractures. 3. Small right knee joint effusion. ACT 112: Negative or not required by law. Electronically signed by: Javier Mathur M.D. 05/09/2024 6:56 AM PG Care Time/CCT Total # of Minutes Spent Total Time Spent with Patient: Total time spent is greater than 50% in coordination of care (as documented) at patient's floor/unit and/or counseling patient: Coding Level of Care Code 24844 SUB INP/OBS CARE 2/35MIN Diagnoses Bilateral pulmonary embolism I26.99 Deep venous thrombosis of right popliteal vein I82.431 Dislocation of right patella S83.004A Chronic GERD K21.9 Moderate persistent asthma without complication J45.40 Asthma severity: moderate Asthma persistence: persistent Asthma complication type: uncomplicated Benign essential hypertension I10 Anxiety F41.9 (5) Asthma Asthma severity: moderate Asthma persistence: persistent Asthma complication type: uncomplicated Qualified Code(s): J45.40 - Moderate persistent asthma, uncomplicated
[2024-05-09] MEDS: SUMAtriptan succinate 25 MG TAB PO ONE (15:31)
--- NOTE | 2024-05-09 16:47 | Orthopedic Consultation ---
Date of Service May 09, 2024 Assessment & Plan (1) Deep venous thrombosis of right popliteal vein: (2) Closed dislocation of patella: (3) Bilateral pulmonary embolism: Plan With another patellar dislocation here in the hospital with her brace in place, she is likely failed nonoperative management. This is unfortunate as she has now developed pulmonary embolism and will need anticoagulation. I would consider this a nearly unprovoked episode of VTE. She was in a very minimal brace and was range of motion as tolerated. The question of duration of her anticoagulation is important as I expect her to have ongoing patellar instability episodes requiring surgical stabilization. Best surgery for her to achieve stabilization is a tibial tubercle osteotomy and MPFL reconstruction. I spent time discussing reduction maneuvers because I expect this to be a problem going forward. She should get assistance getting the knee into full extension and gently reduce the patella from lateral to medial. She may need to be accustomed to doing this to avoid urgent trips to the emergency room. She should remain in the knee immobilizer for all ambulatory activities until pain and swelling resolve. We should follow-up with her in clinic in about 2-3 weeks. She is able to transition to her patella stabilization brace that she already has when she feels comfortable to do so at home. At that point, range of motion will be as tolerated. She will have to be mindful of foot rotation anytime she flexes the knee. I discussed changing the brace is out with the knee held in extension. [place] text me with any further questions. She can contact [facility] to resume care as an outpatient. History of Present Illness Reason for Consultation: Right patellar instability severe Requesting Physician: . Attending Physician: Leticia Ya MD 43-year-old female went to the ER last night for chest pain and was found to have a pulmonary embolism. There is also deep vein thrombosis in the right lower extremity. She has a history of severe and rather acute onset patellar instability. She was last seen about a month ago we are attempting maximal nonoperative management with a brace. She said she was getting out around pretty well and felt fairly stable in the brace. Unfortunately, last night she dislocated once again. She was using her patella stabilization brace and swung her leg over the bed. When she flexed the patella was dislocated. She required parenteral pain medication and manual reduction. She was placed in a knee immobilizer. She said that it feels like it wants to subluxate as she rested today. He has not come out yet today Allergies Allergy/AdvReac Type Severity Reaction Status Date / Time Bactrim Allergy Unknown hives Verified 10/16/16 12:17 cefaclor Allergy Unknown hives Verified 05/09/24 10:57 clarithromycin Allergy Unknown hives Verified 05/09/24 10:57 erythromycin base Allergy Unknown hives Verified 05/09/24 10:57 Penicillins Allergy Unknown hives Verified 05/09/24 10:57 sulfamethoxazole Allergy Unknown hives Verified 05/09/24 10:57 trimethoprim Allergy Unknown hives Verified 05/09/24 10:57 Home Medications Medication Instructions Recorded Confirmed Type aspirin 81 mg tablet,delayed 81 mg PO QAM 09/11/21 05/09/24 History release (Candace Low Dose Aspirin) fluticasone propionate 50 2 sprays intranasal DAILY PRN 09/11/21 05/09/24 History mcg/actuation nasal Allergy Symptoms spray,suspension multivitamin (Multiple Vitamins 1 tab PO QAM 09/11/21 05/09/24 History tablet) magnesium 30 mg tablet 30 mg PO 3XWK 09/17/21 05/09/24 History nebulizer accessories #1 ea 10/23/22 07/13/23 Rx losartan 25 mg tablet 25 mg PO BID #180 tabs 07/19/23 05/09/24 Rx montelukast 10 mg tablet 10 mg PO QPM #90 tabs 09/27/23 05/09/24 Rx levonorgestrel 21 mcg/24 hr (up to 0 ea intrauterine ONCE 11/03/23 05/09/24 History 8 years) 52 mg intrauterine device (Mirena) omega 0-xac-vrh-fish oil 1,000 mg 2 cap PO QAM 11/03/23 05/09/24 History (120 mg-180 mg) capsule (Fish Oil) omeprazole magnesium 20 mg 0 mg PO QAM 11/03/23 05/09/24 History tablet,delayed release buspirone 10 mg tablet 10 mg PO BID #180 tabs 01/10/24 05/09/24 Rx fluoxetine 40 mg capsule 40 mg PO QAM #90 caps 01/13/24 05/09/24 Rx Past Med/Surg History Problem List Deep venous thrombosis of right popliteal vein Closed dislocation of patella (Acute) Bilateral pulmonary embolism (Acute) Dislocation of right patella Change in bowel habits Positive RACHEL (antinuclear antibody) Thyroid nodule Cervicalgia Thyromegaly History of hyperlipidemia Abnormal mammogram Allergic rhinitis (Acute) Bleeding disorder (Acute) Migraine headache (Acute) HLD (hyperlipidemia) Allergic rhinitis Chronic GERD MTHFR gene mutation Asthma well controlled -- last used rescue inhaler Fall 2022. Benign essential hypertension Anxiety Medical History History of COVID-19 05/2021: severe flu symptoms. no hospitalization. Obesity Surgical History History of esophagogastroduodenoscopy (EGD) History of dilatation and curettage D&E History of colonoscopy History of myringotomy BMT (multiple times) Family History Father Anxiety Depression Lung disease Hypertension Mother Hypertension Grandfather Lung disease Cancer Other No family history of adverse response to anesthesia Denies family history of Ovarian cancer Prostate cancer Myocardial infarction Breast cancer Colorectal cancer Social History Smoking Status: Current some day smoker Tobacco Type: E-cigarettes / Vaping Cigarettes Per Day: vapes daily; Second Hand Exposure: No; Do You Dip or Chew Tobacco: No; Hx Alcohol Use: Yes Hx Substance Use: No Preferred Language: Slovak Communication Ability: Effective Visual Impairment: No Limitations Hearing Ability: Normal Inventory And Pricing Associate Required: No Beliefs That Will Affect Care: None marital status: Single Current Living Situation: Family Current Living Situation Comment: lives with fiance and 3 kids current occupational status: employed How many Children do You have: 3 Other Information That Helps Us Care for You: No Feels Safe at Home: Yes Safety Concerns: Feels Safe At This Time Childhood Exposure to Second-Hand Smoke: Yes Diet: regular caffeine: Yes during the past year weight has: remained stable Dental Care, Regularly: Yes Physical Activity Frequency: 1-2 Times per Week Seatbelt Use: always Sunscreen Use: Yes (sometimes) Assistive Devices: Brace/Splint/Immobilizer, Crutches and Glasses Review of Systems All systems reviewed & are unremarkable except as noted in HPI & below. Physical Exam Right lower extremity: Knee immobilizer in place. Distal neurovascular intact. Constitutional WD/WN, vitals as above Respiratory normal respiratory effort; no respiratory distress Cardiovascular Extremities: normal capillary refill; no edema Chest (Breasts) Chest: normal inspection of chest Skin no rashes, warm and dry Psychiatric A+Ox3, euthymic affect Results & Data Results & Data Laboratory Results . Diagnostic Findings Radiographs reviewed. No new fractures or other injuries. Her MRI predating this event shows a high TT:TG ratio and avulsion of the MPFL PG Care Time/CCT Total # of Minutes Spent Total Time Spent with Patient: Total time spent is greater than 50% in coordination of care (as documented) at patient's floor/unit and/or counseling patient: Coding Level of Care Code 39183 IN/OBS CONSULT LVL 3,45M Diagnoses Deep venous thrombosis of right popliteal vein I82.431 Closed dislocation of patella S83.004A Encounter type: initial encounter Laterality: right Bilateral pulmonary embolism I26.99 (2) Closed dislocation of patella Encounter type: initial encounter Laterality: right Qualified Code(s): S83.004A - Unspecified dislocation of right patella, initial encounter
[2024-05-09] MEDS: MONTELUKAST SODIUM 10 MG TABLET PO SCH (20:28)
[2024-05-09] MEDS: APIXABAN 5 MG TABLET PO SCH (20:33)
[2024-05-09] MEDS ORDERED: MoRPHine SULFATE 2 MG/ML CARP IV PRN (21:01)
[2024-05-09] MEDS: MoRPHine SULFATE 4 MG/ML 1 ML CARP\\VIAL IV PRN (21:10)
[2024-05-09] MEDS: [UNRECOGNIZED DRUG - REMARK] ONE (21:11)
[2024-05-10 06:36] LABS: Basophils # (auto) 0.05 K/uL (0.00-0.20); Basophils % (auto) 0.6 %; Eosinophils # (auto) 0.08 K/uL (0.00-0.50); Eosinophils % (auto) 0.9 %; Hematocrit (blood only) 39.2 % (37.0-47.0); Hemoglobin 12.8 g/dl (12.0-16.0); Immature Granulocytes # (auto) 0.02 K/uL (0.01-0.20); Immature Granulocytes % (auto) 0.2 %; Lymphocytes # (auto) 2.13 K/uL (1.20-3.40); Lymphocytes % (auto) 23.6 %; Mean Corpuscular Hgb Conc 32.7 g/dL (32.0-36.0); Mean Corpuscular Volume 88.9 fL (80.0-100.0); Mean Platelet Volume 9.2 fL (9.4-12.4); Monocytes # (auto) 0.69 K/uL (0.11-0.59); Monocytes % (auto) 7.6 %; Neutrophils # (auto) 6.06 K/uL (1.40-6.50); Neutrophils % (auto) 67.1 %; Platelet Count 306 K/uL (130-400); RDW Coefficient of Variation 12.6 % (11.5-14.5); RDW Standard Deviation 41.1 fL (36.4-46.3); Red Blood Count 4.41 M/uL (4.20-5.40); White Blood Count 9.03 K/ul (4.8-10.8)
[2024-05-10 06:54] LABS: Albumin Level 3.7 gm/dl (3.4-5.0); BUN Creatinine Ratio 12.3 (10-20); Calcium 8.9 mg/dl (8.6-10.3); Creatinine Clr Calc Pharmacy 168.6 ml/min; Est GFR (Non-African American) 108.7 ml/min; Phosphorus 3.9 mg/dl (2.5-4.9); Potassium 3.9 mmol/L (3.5-5.1)
[2024-05-10 07:20] LABS: ANTI-Xa, UFH(UnfractionatedHep 1.37 IU/ml (0.3-0.7)
[2024-05-10] MEDS: oxyCODONE HCL IR 5 MG TAB (IMMEDIATE RELEASE) PO PRN ×2 (11:18→23:21)
--- NOTE | 2024-05-10 14:57 | Hospitalist Progress Note ---
Date of Service May 10, 2024 Assessment & Plan (1) Bilateral pulmonary embolism: (2) Deep venous thrombosis of right popliteal vein: (3) Dislocation of right patella: (4) Chronic GERD: (5) Asthma: (6) Benign essential hypertension: (7) Anxiety: Plan Bilateral pulmonary emboli Due to right popliteal DVT Switched from heparin drip to p.o. Eliquis Has likely occurred on the basis of decreased mobility due to need for use of a brace for stability due to recurrence of patellar dislocation Her mother has a history of DVT in lower extremity after trauma Not requiring oxygen upon ambulation But pain is still uncontrolled Switch to p.o. oxycodone for pain control Recurrent dislocation of right patella- Right patella was relocated by the ED Follows with orthopedic surgery Dr. Arellano, and reportedly has a surgery scheduled for sometime in May Advised to follow-up with orthopedics Hypertension- Continue aspirin and losartan Asthma- Continue albuterol sulfate, montelukast GERD- Continue omeprazole/pantoprazole Anxiety- Continue buspirone, fluoxetine, and hydroxyzine as needed Full code Likely discharge tomorrow Admission and Anticipated Discharge Date Admission Date: May 08, 2024 Subjective Patient still has severe pain on inspiration, for which she has been requiring morphine. Review of Systems Review of Systems: All systems reviewed & are unremarkable except as noted in Subjective Physical Exam Physical Exam: General: Awake, conversant. Morbidly obese Heart: S1, S2/regular rate and rhythm, no murmur rubs or gallops Lungs: Clear to auscultation bilaterally. Normal effort Abdomen: Soft/nontender/nondistended. No hepatosplenomegaly Extremities: No clubbing/cyanosis. No edema Behavior: Appropriate, cooperative Results & Data Results & Data Vital Signs (Past 12 Hours) Vital Signs Temp Pulse Pulse Pulse Pulse Resp Resp 05/10/24 14:46 36.7 C 85 16 05/10/24 11:29 36.7 C 82 16 05/10/24 10:27 137 H 89 20 05/10/24 07:51 36.7 C 80 16 05/10/24 07:34 86 Resp BP Pulse Ox Pulse Ox Pulse Ox O2 Del Method 05/10/24 14:46 132/74 91 Room Air 05/10/24 11:29 133/73 92 Room Air 05/10/24 10:27 17 94 95 05/10/24 07:51 138/70 91 Room Air 05/10/24 07:34 Laboratory Results Abnormal lab results 05/10/24 Range/Units 06:18 MPV 9.2 L (9.4-12.4) fL [place] # (Auto) 0.69 H (0.11-0.59) K/uL Heparin Anti-Xa, Unfract 1.37 H* (0.3-0.7) IU/ml Glucose 109 H (70-99(Fasting)) mg/dl PG Care Time/CCT Total # of Minutes Spent Total Time Spent with Patient: Total time spent is greater than 50% in coordination of care (as documented) at patient's floor/unit and/or counseling patient: Coding Level of Care Code 17015 SUB INP/OBS CARE 235MIN Diagnoses Bilateral pulmonary embolism I26.99 Deep venous thrombosis of right popliteal vein I82.431 Dislocation of right patella S83.004A Chronic GERD K21.9 Moderate persistent asthma without complication J45.40 Asthma complication type: uncomplicated Asthma persistence: persistent Asthma severity: moderate Benign essential hypertension I10 Anxiety F41.9 (5) Asthma Asthma complication type: uncomplicated Asthma persistence: persistent Asthma severity: moderate Qualified Code(s): J45.40 - Moderate persistent asthma, uncomplicated
[2024-05-10] MEDS: hydrOXYzine HCl 25 MG TAB PO PRN (21:14)
[2024-05-11 02:12] VITALS: RESP 16
[2024-05-11 07:44] LABS: Basophils # (auto) 0.05 K/uL (0.00-0.20); Basophils % (auto) 0.7 %; Eosinophils % (auto) 2.6 %; Hematocrit (blood only) 38.4 % (37.0-47.0); Hemoglobin 12.6 g/dl (12.0-16.0); Immature Granulocytes # (auto) 0.03 K/uL (0.01-0.20); Immature Granulocytes % (auto) 0.4 %; Lymphocytes # (auto) 2.24 K/uL (1.20-3.40); Lymphocytes % (auto) 29.7 %; Mean Corpuscular Hgb Conc 32.8 g/dL (32.0-36.0); Mean Corpuscular Volume 88.3 fL (80.0-100.0); Mean Platelet Volume 9.4 fL (9.4-12.4); Monocytes # (auto) 0.66 K/uL (0.11-0.59); Monocytes % (auto) 8.7 %; Neutrophils # (auto) 4.37 K/uL (1.40-6.50); Neutrophils % (auto) 57.9 %; Platelet Count 325 K/uL (130-400); RDW Coefficient of Variation 12.7 % (11.5-14.5); RDW Standard Deviation 41.4 fL (36.4-46.3); Red Blood Count 4.35 M/uL (4.20-5.40); White Blood Count 7.55 K/ul (4.8-10.8)
[2024-05-11 08:12] VITALS: BP 132/72; PULSE 70; TEMP 98.3; O2SAT 92
[2024-05-11 08:22] LABS: Albumin Level 3.7 gm/dl (3.4-5.0); BUN Creatinine Ratio 16.1 (10-20); Creatinine Clr Calc Pharmacy 178.6 ml/min; Est GFR (Non-African American) 110.4 ml/min; Magnesium 1.9 mg/dl (1.7-2.4); Phosphorus 3.8 mg/dl (2.5-4.9); Potassium 3.6 mmol/L (3.5-5.1)
--- NOTE | 2024-05-11 10:26 | Discharge Summary ---
Date of Service May 11, 2024 Admission HPI Per Admitting Provider The patient is a 43-year-old female with a past medical history including dislocation of right patella, positive RACHEL, hyperlipidemia, chronic GERD, asthma, hypertension, morbid obesity, and anxiety. She has been wearing a brace on her right knee, due to recurrent dislocation of right patella, and has a surgery scheduled for sometime in May. She did develop worsening discomfort in her right leg recently, and presents to the ED due to acute onset of right- sided chest pain. Admission Exam Per Admitting Provider The patient is awake, alert and oriented 3, well developed and well nourished, normocephalic and atraumatic, lying in bed and in no acute distress. HEENT--PERRL, EOMI, mucous membranes and oropharynx dry. Neck--supple. No JVD. No bruits. Thyroid normal, trachea midline, no adenopathy. Heart--normal S1 and S2. No murmurs, rubs or gallops. Lungs--clear bilaterally, no respiratory distress, no accessory muscle use. Abdomen--normal bowel sounds and soft. Nontender. Nondistended, no hernias or masses, no organomegaly. Extremities--no cyanosis or clubbing. No edema. There are good distal pulses b/l. Dermatologic--normal skin turgor, normal color, no abnormal lymph nodes, no rash. Neurologic--cranial nerves II through XII grossly intact. Rheumatologic--limited range of motion of right leg and knee Psychiatric--normal affect. Principal Diagnosis Bilateral PE due to right popliteal DVT Recurrent dislocation of right patella Discharge Exam General: Awake, conversant. Morbidly obese Heart: S1, S2/regular rate and rhythm, no murmur rubs or gallops Lungs: Clear to auscultation bilaterally. Normal effort Abdomen: Soft/nontender/nondistended. No hepatosplenomegaly Extremities: No clubbing/cyanosis. No edema Behavior: Appropriate, cooperative Discharge Data Allergies Allergy/AdvReac Type Severity Reaction Status Date / Time Bactrim Allergy Unknown hives Verified 10/16/16 12:17 cefaclor Allergy Unknown hives Verified 05/09/24 10:57 clarithromycin Allergy Unknown hives Verified 05/09/24 10:57 erythromycin base Allergy Unknown hives Verified 05/09/24 10:57 Penicillins Allergy Unknown hives Verified 05/09/24 10:57 sulfamethoxazole Allergy Unknown hives Verified 05/09/24 10:57 trimethoprim Allergy Unknown hives Verified 05/09/24 10:57 Consultations 05/08/24 22:28 ED Decision to Admit Stat 05/09/24 03:24 Consult Orthopedic Surgery Routine Ordered Studies 05/08/24 18:36 US venous doppler LE RT Stat 05/08/24 18:42 CT angio chest PE protocol Stat Hospital Course (1) Bilateral pulmonary embolism: (2) Deep venous thrombosis of right popliteal vein: (3) Dislocation of right patella: (4) Chronic GERD: (5) Asthma: (6) Benign essential hypertension: (7) Anxiety: Plan Bilateral pulmonary emboli Due to right popliteal DVT Switched from heparin drip to p.o. Eliquis Has likely occurred on the basis of decreased mobility due to need for use of a brace for stability due to recurrence of patellar dislocation Her mother has a history of DVT in lower extremity after trauma Not requiring oxygen upon ambulation Pain is better controlled today on p.o. oxycodone Discharge to home on p.o. Eliquis and p.o. oxycodone Recurrent dislocation of right patella- Right patella was relocated by the ED Follows with orthopedic surgery Dr. Arellano Patient has been seen by orthopedics during this hospital stay Advised to follow-up with orthopedics Hypertension- Continue aspirin and losartan Asthma- Continue albuterol sulfate, montelukast GERD- Continue omeprazole/pantoprazole Anxiety- Continue buspirone, fluoxetine, and hydroxyzine as needed Full code Discharge to home today Total Time Total Time Spent Total Time Spent (In Minutes): 35 Discharge Plan Discharge Items Patient Disposition: Home - Self-Care Reason For Visit: PULMONARY EMBOLI Discharge Diagnosis: Bilateral PE due to right popliteal DVT Recurrent dislocation of right patella Activity: Resume your previous activity Non-emergency contact: Primary Care Provider Call non-emergency contact if: you have any medication questions and your symptoms worsen Follow-up/Referrals: Horacio Arellano MD [Surgeon] - 05/29/24 10:45 am () Saima Mcdermott DO [Primary Care Provider] - 05/19/24 11:00 am Diet: Heart Healthy Addtl Attending Provider Instructions: Orthopedic instructions for the patellar instability: Remain in the knee immobilizer with the knee in extension until pain and swe lling are significantly improved after a week or 2. Contact the orthopedic clinic for any questions. You can carefully bend the knee as tolerated but recommend having the knee supported in full extension and bending with a heel slide. The brace can be removed for careful hygiene. Keeping the knee rested straight will prevent the kneecap from dislocating. Remember to get the knee straight should the patella feel like it is trying to slip out of place once again. As pain and swelling improve from this latest episode, you may change the knee immobilizer to the previous patellar stability brace. Use the brace that provides the most comfort. You can bend the knee as pain allows. Pending Studies at Discharge: No Stand-Alone Forms: My [facility], Work/School Release Medications and DC Order Prescriptions: New Eliquis 5 mg Tablet 10 mg PO BID Qty: 72 0RF Rx Instructions: advised to take 2 tablets by mouth twice a day until a.m. dose of 9/16, then switch to 1 tablet by mouth twice a day. oxycodone 5 mg Tablet 5 mg PO Q6 PRN (Reason: pain) Qty: 20 0RF Rx Instructions: Take 1 tab for 3-6/10 pain. Take 2 tabs for 7-10/10 pain Continued losartan 25 mg tablet 25 mg PO BID Qty: 180 3RF buspirone 10 mg tablet 10 mg PO BID Qty: 180 1RF fluoxetine 40 mg capsule 40 mg PO QAM Qty: 90 0RF (DME) nebulizer accessories Kit See Rx Instructions .Route Qty: 1 0RF Rx Instructions: As directed magnesium 30 mg tablet 30 mg PO 3XWK Rx Instructions: Unable to verify OTC meds at this date/time. montelukast 10 mg tablet 10 mg PO QPM Qty: 90 3RF aspirin [Candace Low Dose Aspirin] 81 mg Tablet,Delayed Release (Dr/Ec) 81 mg PO QAM Rx Instructions: Unable to verify OTC meds at this date/time. fluticasone propionate 50 mcg/actuation spray,suspension 2 sprays intranasal DAILY PRN (Reason: Allergy Symptoms) Rx Instructions: Unable to verify OTC meds at this date/time. multivitamin [Multiple Vitamins] Tablet 1 tab PO QAM Rx Instructions: Unable to verify OTC meds at this date/time. Mirena 20 mcg/24 hours (5 yrs) 52 mg intrauterine device 0 ea IU ONCE Rx Instructions: Unable to verify w/ patient/pharmacy at this date/time. omeprazole magnesium 20 mg tablet,delayed release (DR/EC) 0 mg PO QAM Rx Instructions: Unable to verify med w/ pharmacy/patient at this date/time. Original Directions: 20mg by mouth in the morning omega [id number]-fish oil [Fish Oil] 1,000 mg (120 mg-180 mg) Capsule 2 cap PO QAM Rx Instructions: Unable to verify OTC meds at this date/time. Discharge Orders: Discharge Order (Routine); Ordered 05/11/24 Ordered By: Leticia Ya Admission Data Admit Date/Time: 05/08/24 23:12 Attending Provider: Leticia Ya Admit Provider: Freddy Garner Primary Care Provider: Saima Mcdermott Other Providers: Freddy Garner; Horacio Arellano Other Interventions: Discharge Summary Assessment (RN) Last Done: 05/11/24 11:05
== END 2024-05-11 13:03 | disposition home or self-care (01) | DRG 299 ==
LOC: ED 17:41 → SUATTDRO 23:12 → 2N 23:12